=== PATIENT | female | born 1930 | race Hispanic/Latino ===

== ENCOUNTER 2019-06-02 16:18 | Emergency (ER) | payer MEDICARE, OTHER ==
[2019-06-02] MEDS ORDERED: IPRATROPIUM/ALBUTEROL SULFATE 3 ML AMPUL.NEB IH ONE (17:02)
--- NOTE | 2019-06-02 17:02 | Cat Scan Report ---
CT head/brain wo con INDICATION: Stroke symptoms. TECHNIQUE: Head CT without contrast All CT scans at this location are performed using CT dose reduction for ALAR A by means of automated exposure control. COMPARISON: None available. FINDINGS: There is cortical and subcortical hypoattenuation consistent with acute infarct in the right posterio r MCA territory in the right parietal minimal convexity extending into the right posterior insula and right posterior temporal lobe. There is associated hemorrhage or adverse mass effect. There is no ot her acute abnormality. IMPRESSION: 1. Right posterior MCA territory acute infarct without associated hemorrhage or adverse mass effect. Findings discussed with Dr. Willis at 3:57 PM central time on 06/02/2019. Signer Name: Kishor Travis MD Signed: 06/02/2019 4:58 PM Workstation Name: [id number]
--- NOTE | 2019-06-02 17:02 | Emergency Department Report ---
ED Neuro Deficit HPI - General Stated Complaint: FALL/ARM PAIN/DEMENTIA Time Seen by Provider: 06/02/19 16:38 - History of Present Illness Initial Comments: [facility] Date of Service: 06/02/2019 16:35:32 Impression: Right Hemispheric Infarct MCA Distribution Infarct Comments: Patient has an unknown last normal time with most possible recent being yesterday and a well defined R MCA infarct on CT. She is close to 24 hours from possible last normal and the infarct is present therefore I would no consider her a candidate for any intervention and recommend admission for further work up. Metrics: Last Known Well: Unknown [facility] Notification Time: 06/02/2019 16:34:47 Arrival Time: 06/02/2019 16:18:00 Stamp Time: 06/02/2019 16:35:32 Time First Login Attempt: 06/02/2019 16:40:13 Video Start Time: 06/02/2019 16:40:13 Symptoms: falls and slurred speech NIHSS Start Assessment Time: 06/02/2019 16:49:30 Patient is not a candidate for tPA. Patient was not deemed candidate for tPA thrombolytics because of Last Well Known Above 4.5 Hours. Video End Time: 06/02/2019 16:56:55 CT head was reviewed and results were: R MCA territory infarct Advanced imaging was not obtained as the presentation was not suggestive of Large Vessel Occlusive Disease. ER Physician notified of the decision on thrombolytics management on 06/02/2019 16:56:13 Our recommendations are outlined below. Recommendations: Activate Stroke Protocol Admission/Order Set Stroke/Telemetry Floor Neuro Checks Bedside Swallow Eval DVT Prophylaxis IV Fluids, Normal Saline Head of Bed Below 30 Degrees Euglycemia and Avoid Hyperthermia (PRN Acetaminophen) Initiate Aspirin 325 MG Daily Recommended Scan: MRI Head Without Contrast MRA Head and Neck Without Contrast When Available - Stroke Protocol Echocardiogram - Transthoracic Echocardiogram Lipid Panel to Be Obtained, if Not Done in the Last Three Months Therapies: Physical Therapy, Occupational Therapy, Speech Therapy Assessment When Applicable Dysphaghia Screen: Swallow Evaluation, Bedside NPO Until Swallow Evaluation DVT prophylaxis: SCDs, Pneumatic Compression Disposition: Follow up with Teleneurology Follow up Sign Out: Discussed with Primary Attending History of Present Illness: Patient is a 88 year old Female. Patient was brought by EMS for symptoms of falls and slurred speech 88 yo F with history of dementia, hypothyroidism, and dm who is presenting with falls and slurred speech. Patient fell today at her nursing facility today and then she fell a second time so they brought her in. EMT said it was at 10:00. Per EMS she was having falls. The falls occurred in the morning but that we don't know when. She has some left sided weakness. She was reported to have been like this all morning per EMS. Last normal time is not clear. CT head was reviewed. Examination: 1A: Level of Consciousness - Alert; keenly responsive + 0 1B: Ask Month and Age - 1 Question Right + 1 1C: Blink Eyes & Squeeze Hands - Performs Both Tasks + 0 2: Test Horizontal Extraocular Movements - Partial Gaze Palsy: Can Be Overcome + 1 3: Test Visual Dumont - No Visual Loss + 0 4: Test Facial Palsy (Use Grimace if Obtunded) - Partial paralysis (lower face) + 2 5A: Test Left Arm Motor Drift - No Movement + 4 5B: Test Right Arm Motor Drift - No Drift for 10 Seconds + 0 6A: Test Left Leg Motor Drift - No Drift for 5 Seconds + 0 6B: Test Right Leg Motor Drift - No Drift for 5 Seconds + 0 7: Test Limb Ataxia (FNF/Heel-Beard) - No Ataxia + 0 8: Test Sensation - Complete Loss: Cannot Sense Being Touched At All + 2 9: Test Language/Aphasia - Mild-Moderate Aphasia: Some Obvious Changes, Without Significant Limitation + 1 10: Test Dysarthria - Mild-Moderate Dysarthria: Slurring but can be understood + 1 11: Test Extinction/Inattention - No abnormality + 0 NIHSS Score: 12 Patient was informed the Neurology Consult would happen via TeleHealth consult by way of interactive audio and video telecommunications and consented to receiving care in this manner. Due to the immediate potential for life-threatening deterioration due to underlying acute neurologic illness, I spent 35 minutes providing critical care. This time includes time for face to face visit via telemedicine, review of medical records, imaging studies and discussion of findings with providers, the patient and/or family. Dr Chelsea Wolff [facility] Case [id number] - Related Data Home Medications: Home Medications Medication Instructions Recorded Confirmed Last Taken Ascorbate Calcium [Vitamin C] 500 mg PO BID 07/29/13 07/29/13 Unknown Cyanocobalamin/Folic Acid [B-12 1 tab PO DAILY 07/29/13 07/29/13 Unknown 1,000 Mcg Sub Tablet] DOXYCYCLINE Hyclate [Vibramycin 100 mg PO DAILY 07/29/13 07/29/13 Unknown CAP] Fesoterodine Fumarate [Toviaz] 4 mg PO DAILY 07/29/13 07/29/13 Unknown Gabapentin 300 mg PO BID 07/29/13 07/29/13 08/08/13 22:00 Levothyroxine [Synthroid] 50 mcg PO DAILY 07/29/13 07/29/13 08/10/13 07:00 Losartan [Cozaar] 25 mg PO DAILY 07/29/13 07/29/13 08/10/13 07:00 Metformin HCl [metFORMIN ER] 1,000 mg PO BID 07/29/13 07/29/13 Unknown Multivit-Min/FA/Lycopen/Lutein 1 tab PO DAILY 07/29/13 07/29/13 Unknown [Century Adults 50 Plus Tablet] [place]-3 Fatty Acids [Fish Oil] 1 cap PO DAILY 07/29/13 07/29/13 Unknown Valsartan [Diovan] 80 mg PO DAILY 08/04/13 08/04/13 08/09/13 08:00 Allergies/Adverse Reactions: Allergies Allergy/AdvReac Type Severity Reaction Status Date / Time Penicillins Allergy Anaphylaxis Verified 06/02/19 17:00 ED Review of Systems ROS: Stated complaint: FALL/ARM PAIN/DEMENTIA Other details as noted in HPI ED Past Medical Hx - Past Medical History Hx Hypertension: Yes (stop taking BP meds 4 months lorsaatan stress test and echo 4 yrs ago chan) Hx Heart Attack/AMI: No Hx Diabetes: Yes (5-6 YRS " BORDERLINE") Hx Liver Disease: No Hx Renal Disease: No Hx Sickle Cell Disease: No Hx Arthritis: Yes Hx Seizures: No Hx Asthma: No Hx COPD: No - Surgical History Hx Pacemaker: No Hx Internal Defibrillator: No - Social History Smoking Status: Former Smoker - Medications Home Medications: Home Medications Medication Instructions Recorded Confirmed Last Taken Type Ascorbate Calcium [Vitamin C] 500 mg PO BID 07/29/13 07/29/13 Unknown History Cyanocobalamin/Folic Acid [B-12 1 tab PO DAILY 07/29/13 07/29/13 Unknown History 1,000 Mcg Sub Tablet] DOXYCYCLINE Hyclate [Vibramycin 100 mg PO DAILY 07/29/13 07/29/13 Unknown History CAP] Fesoterodine Fumarate [Toviaz] 4 mg PO DAILY 07/29/13 07/29/13 Unknown History Gabapentin 300 mg PO BID 07/29/13 07/29/13 08/08/13 22:00 History Levothyroxine [Synthroid] 50 mcg PO DAILY 07/29/13 07/29/13 08/10/13 07:00 History Losartan [Cozaar] 25 mg PO DAILY 07/29/13 07/29/13 08/10/13 07:00 History Metformin HCl [metFORMIN ER] 1,000 mg PO BID 07/29/13 07/29/13 Unknown History Multivit-Min/FA/Lycopen/Lutein 1 tab PO DAILY 07/29/13 07/29/13 Unknown History [Century Adults 50 Plus Tablet] [place]-3 Fatty Acids [Fish Oil] 1 cap PO DAILY 07/29/13 07/29/13 Unknown History Valsartan [Diovan] 80 mg PO DAILY 08/04/13 08/04/13 08/09/13 08:00 History ED Neuro Physical Exam - General Suspected Stroke: Yes - NIHSS Assessment Interval: Baseline 1a. Level of Consciousness: alert/keenly responsive 1b. LOC Questions: answers 1 question correctly 1c. LOC Commands: performs tasks correctly 2. Best Gaze: partial gaze palsy 3. Visual: no visual loss 4. Facial Palsy: partial paralysis 5b. Motor Arm Right: no drift 5a. Motor Arm Left: no movement 6a. Motor Leg Left: no drift 6b. Motor Leg Right: no drift 7. Limb Ataxia: absent 8. Sensory: severe/total sensory loss 9. Best Language: mild/moderate aphasia 10. Dysarthria: mild/moderate dysarthria 11. Extinction/Inattention: no abnormality Total Score: 12 Stroke Severity: Moderate Stroke Critical care attestation.: If time is entered above; I have spent that time in minutes in the direct care of this critically ill patient, excluding procedure time. ED Disposition Clinical Impression: Stroke Disposition: [id number] OP ADMIT IP TO THIS HOSP Is pt being admited?: Yes Condition: Stable
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
[2019-06-02 17:24] LABS: Basophils # (Auto) 0.1 K/mm3 (0.0-0.1); Basophils % (Auto) 0.4 % (0.0-1.8); Eosinophils % (Auto) 0.1 % (0.0-4.3); Hematocrit 33.6 % (30.3-42.9); Hemoglobin 11.1 gm/dl (10.1-14.3); Lymphocytes # (Auto) 0.4 K/mm3 (1.2-5.4); Mean Corpuscular HGB Conc 33 % (30-34); Mean Corpuscular Volume 99 fl (79-97); Monocytes # (Auto) 1.2 K/mm3 (0.0-0.8); Monocytes % (Auto) 8.6 % (0.0-7.3); Platelet Count 207 K/mm3 (140-440); Red Cell Distribution Width 14.1 % (13.2-15.2)
[2019-06-02] MEDS ORDERED: LORazepam 2 MG/ML VIAL IV ONE (17:32)
[2019-06-02 17:34] LABS: INR 1.24 (0.87-1.13)
[2019-06-02 17:35] LABS: Partial Thromboplastin Time 36.3 Sec. (24.2-36.6)
[2019-06-02 17:38] LABS: Creatine Kinase MB 25.9 ng/mL (0.0-4.0)
[2019-06-02 17:39] LABS: Calcium 8.8 mg/dL (8.4-10.2)
[2019-06-02 17:55] LABS: Chol/HDL Ratio 2.92 %
[2019-06-02] MEDS ORDERED: SODIUM CHLORIDE 0.9% 1000 ML 1,000 ML IV ONE (17:56)
--- NOTE | 2019-06-02 18:41 | XRay Report ---
LEFT SHOULDER 4 VIEWS INDICATION: Shoulder pain, trauma. COMPARISON: No relevant prior imaging study available. FINDINGS: No acute, displaced fracture or dislocation is seen. There is mild subjective osteopenia. Mild degene rative changes are noted at the left shoulder. IMPRESSION: 1. No acute findings. CHEST 1 VIEW INDICATION: sob. COMPARISON: None. FINDINGS: Support devices: None. Heart: Normal. Lungs/Pleura: No acute pulmonary or pleural findings. IMPRESSION: 1. No acute findings. Signer Name: Sreedhar Cowan MD Signed: 06/02/2019 6:36 PM Workstation Name: [id number]
--- NOTE | 2019-06-02 18:46 | XRay Report ---
LEFT FOREARM 2 VIEWS PORTABLE 1745 INDICATION: Fall this morning, left forearm ecchymosis COMPARISON: None FINDINGS: Lateral view is mildly rotated. Atherosclerotic calcifications are seen. Arthritic changes are noted at the elbow and wrist. Chondrocalcinosis is noted at the wrist. No obvious fractures or di slocations are seen. Signer Name: Ti St MD Signed: 06/02/2019 6:41 PM Workstation Name: [id number]
[2019-06-02 18:48] LABS: Calcium 8.9 mg/dL (8.4-10.2)
[2019-06-02] MEDS ORDERED: ASPIRIN 300 MG RECT SUPP PR ONE (18:55)
[2019-06-02] MEDS: INSULIN REGULAR, HUMAN 100 UNITS in SODIUM CHLORIDE 0.9% 99 ML IV SCH (18:57)
[2019-06-02 18:58] LABS: Bilirubin,Urine NEG (Negative); Blood,Urine LG (Negative); Color,Urine Amber (Yellow); Hyaline Casts,Urine 3 /LPF; Mucus,Urine FEW /HPF; RBC,Urine < 1.0 /HPF (0.0-6.0); Urobilinogen,Urine < 2.0 mg/dL (<2.0)
[2019-06-02] MEDS ORDERED: CALCIUM GLUCONATE 1,000 MG in SODIUM CHLORIDE 0.9% 100 ML IV ONE (20:00)
[2019-06-02] MEDS ORDERED: HALOPERIDOL LACTATE 5 MG/1 ML INJ ONE (20:18)
[2019-06-02] MEDS ORDERED: HALOPERIDOL LACTATE 5 MG/1 ML INJ IM ONE (20:24)
[2019-06-02] MEDS ORDERED: ASPIRIN 600 MG RECT SUPP PR ONE (20:39)
[2019-06-02 21:23] LABS: Calcium 8.4 mg/dL (8.4-10.2)
[2019-06-02] MEDS ORDERED: D5W/0.45% NACL 1,000 ML IV ONE (22:09)
[2019-06-02] MEDS ORDERED: ACETAMINOPHEN 325 MG TAB PO PRN ×2 (22:22→22:24)
[2019-06-02] MEDS ORDERED: ACETAMINOPHEN 650 MG RECT SUPP PR PRN (22:22)
[2019-06-02] MEDS ORDERED: ONDANSETRON 4 MG/2 ML INJ IV PRN ×2 (22:22→22:24)
[2019-06-02] MEDS ORDERED: D5W/0.45% NACL 1,000 ML IV SCH ×2 (22:22→23:00)
[2019-06-02] MEDS ORDERED: METOCLOPRAMIDE 10 MG TAB PO PRN (22:24)
[2019-06-02] MEDS ORDERED: MAGNESIUM HYDROXIDE (MOM) ORAL LIQD UDC PO PRN (22:24)
[2019-06-02] MEDS ORDERED: PROMETHAZINE 25 MG RECT SUPP PR PRN (22:24)
--- NOTE | 2019-06-02 22:27 | History and Physical Report ---
History of Present Illness Date of examination: 06/02/19 Date of admission: 06/02/19 18:42 History of present illness: 88-year-old woman with a history of dementia, diabetes was brought to the e mergency room for evaluation. The history is per the daughter at bedside, she was told by the assisted living facility that mom fell twice today. Also she was aphasic and was brought to the emergency room for further evaluation. It was reported by the physician that patient developed chest pain on Saturday. In the emergency room she was agitated, she was given Haldol, Ativan, she is now sedated. Review of system is unobtainable. PAST MEDICAL HISTORY: dementia, diabetes PAST SURGICAL HISTORY: Left hip replacement SOCIAL HISTORY: Denies alcohol, tobacco, drugs FAMILY HISTORY: Hypertension Medications and Allergies Allergies Allergy/AdvReac Type Severity Reaction Status Date / Time Penicillins Allergy Anaphylaxis Verified 06/02/19 17:00 Home Medications Medication Instructions Recorded Confirmed Last Taken Type Levothyroxine [Synthroid] 25 mcg PO DAILY 07/29/13 06/03/19 08/10/13 07:00 History Losartan [Cozaar] 50 mg PO DAILY 07/29/13 06/03/19 08/10/13 07:00 History Metformin HCl [metFORMIN ER] 1,000 mg PO BID 07/29/13 06/03/19 Unknown History Memantine [Namenda] 10 mg PO BID 06/03/19 06/03/19 Unknown History Oxybutynin [Ditropan] 5 mg PO BID 06/03/19 06/03/19 Unknown History Active Meds: Active Medications Acetaminophen (Tylenol) 650 mg PO Q4H PRN PRN Reason: Pain MILD(1-3)/Fever >100.5/LANIER Acetaminophen (Tylenol) 650 mg [place] Q4H PRN PRN Reason: Pain MILD(1-3)/Fever >100.5/LANIER Insulin Human Regular 100 (units/ Sodium Chloride) 100 mls @ 1 mls/hr IV TITR ENIO; Protocol Last Titration: 06/02/19 21:55 Dose: 4 units/hr, 4 mls/hr Documented by: Dextrose/Sodium Chloride (D5/0.45ns) 1,000 mls @ 125 mls/hr IV DIRECT ENIO Sodium Chloride (Nacl 0.9% 1000 Ml) 1,000 mls @ 125 mls/hr IV DIRECT ENIO Ondansetron HCl (Zofran) 4 mg IV Q8H PRN PRN Reason: Nausea And Vomiting Sodium Chloride (Sodium Chloride Flush Syringe 10 Ml) 10 ml IV BID ENIO Sodium Chloride (Sodium Chloride Flush Syringe 10 Ml) 10 ml IV PRN PRN PRN Reason: LINE FLUSH Exam - Physical Exam Narrative exam: Gen. appearance: Patient lying in bed, no apparent distress HEENT: Normocephalic, atraumatic, pupils equally round and reactive to light, extraocular movement intact, and no sclericterus,. No JVD or thyromegaly or nodule,neck supple, no carotid bruit ,mucous membranes dry, no exudate or eryth victoria Heart: S1, S2, regular rate and rhythm Lungs: Clear bilaterally, breathing comfortable Abdomen: Positive bowel sounds, soft, distended, no organomegaly Extremity: no edema, cyanosis, clubbing Skin: No rash, nodules, warm, dry Neuro: sedated - Constitutional Vitals: Temp Pulse Resp BP Pulse Ox 97.7 F 79 22 112/59 99 06/02/19 19:34 06/02/19 21:30 06/02/19 21:30 06/02/19 21:30 06/02/19 21:30 Results - Labs CBC & Chem 7: 06/04/19 11:08 06/04/19 19:56 Labs: Abnormal lab results 06/02/19 06/02/19 06/02/19 Range/Units 16:45 18:16 18:16 WBC (4.5-11.0) K/mm3 RBC (3.65-5.03) M/mm3 MCV (79-97) fl MCH (28-32) pg Lymph % (Auto) (13.4-35.0) % [place] % (Auto) (0.0-7.3) % Lymph # (1.2-5.4) K/mm3 [place] # (0.0-0.8) K/mm3 Seg Neutrophils % (40.0-70.0) % Seg Neutrophils # (1.8-7.7) K/mm3 PT (12.2-14.9) Sec. INR (0.87-1.13) Thrombin Time (15.1-19.6) Sec. Sodium 126 L (137-145) mmol/L Potassium 5.3 H (3.6-5.0) mmol/L Chloride 88.2 L (98-107) mmol/L Carbon Dioxide 10 L (22-30) mmol/L BUN 25 H (7-17) mg/dL Creatinine 1.5 H (0.7-1.2) mg/dL Glucose 446 H (65-100) mg/dL POC Glucose 441 H (70-105) Phosphorus 5.60 H (2.5-4.5) mg/dL Total Creatine Kinase (30-135) units/L CK-MB (CK-2) (0.0-4.0) ng/mL Troponin T (0.00-0.029) ng/mL 06/02/19 06/02/19 06/02/19 Range/Units 19:03 20:38 21:03 WBC (4.5-11.0) K/mm3 RBC (3.65-5.03) M/mm3 MCV (79-97) fl MCH (28-32) pg Lymph % (Auto) (13.4-35.0) % [place] % (Auto) (0.0-7.3) % Lymph # (1.2-5.4) K/mm3 [place] # (0.0-0.8) K/mm3 Seg Neutrophils % (40.0-70.0) % Seg Neutrophils # (1.8-7.7) K/mm3 PT (12.2-14.9) Sec. INR (0.87-1.13) Thrombin Time (15.1-19.6) Sec. Sodium 130 L (137-145) mmol/L Potassium (3.6-5.0) mmol/L Chloride 93.0 L (98-107) mmol/L Carbon Dioxide 10 L (22-30) mmol/L BUN 25 H (7-17) mg/dL Creatinine 1.6 H (0.7-1.2) mg/dL Glucose 338 H (65-100) mg/dL POC Glucose 355 H 271 H (70-105) Phosphorus (2.5-4.5) mg/dL Total Creatine Kinase (30-135) units/L CK-MB (CK-2) (0.0-4.0) ng/mL Troponin T (0.00-0.029) ng/mL 06/02/19 06/02/19 06/02/19 Range/Units Unknown Unknown Unknown WBC 14.3 H (4.5-11.0) K/mm3 RBC 3.40 L (3.65-5.03) M/mm3 MCV 99 H (79-97) fl MCH 33 H (28-32) pg Lymph % (Auto) 3.0 L (13.4-35.0) % [place] % (Auto) 8.6 H (0.0-7.3) % Lymph # 0.4 L (1.2-5.4) K/mm3 [place] # 1.2 H (0.0-0.8) K/mm3 Seg Neutrophils % 87.9 H (40.0-70.0) % Seg Neutrophils # 12.6 H (1.8-7.7) K/mm3 PT 15.8 H (12.2-14.9) Sec. INR 1.24 H (0.87-1.13) Thrombin Time 14.0 L (15.1-19.6) Sec. Sodium 126 L (137-145) mmol/L Potassium 5.7 H (3.6-5.0) mmol/L Chloride 87.0 L (98-107) mmol/L Carbon Dioxide 9 L* (22-30) mmol/L BUN 25 H (7-17) mg/dL Creatinine 1.5 H (0.7-1.2) mg/dL Glucose 436 H (65-100) mg/dL POC Glucose (70-105) Phosphorus (2.5-4.5) mg/dL Total Creatine Kinase 1148 H (30-135) units/L CK-MB (CK-2) 25.9 H (0.0-4.0) ng/mL Troponin T 3.590 H* (0.00-0.029) ng/mL - Imaging and Cardiology Chest x-ray: report reviewed CT Scan - head: report reviewed Assessment and Plan X-ray of the forearm and shoulder reviewed Assessment DKA with severe metabolic acidosis Start DKA protocol with insulin drip Start IV fluids, monitor serial chemistry check hemoglobin A1c, Consult critical care NSTMI Check cardiac enzymes, echo, consult cardiology Start aspirin, hold beta-blockers in the acute phase due to acute stroke. No heparin drip for now per cardiology Acute CVA Obtain MRI of the head, neck, echo Do neuro checks, consult neurology, PT, OT Start aspirin, statin when awake Rhabdomyolysis secondary to fall Continue IV fluid, monitor CK level SIRS Start IV Levaquin obtain blood cultures, urinalysis Abdominal distention Check CT abdomen Hyperkalemia Improving, continue to monitor DVT prophylaxis Addendum Patient with acute cholecystitis, will consult surgery Patient had a brief sinus tach, with heart rate in the 180s EKG was obtained, results were discussed with Prognosis guarded CODE STATUS discussed with daughter at bedside She will consider making patient DNR Addendum Patient DNR
[2019-06-02] MEDS ORDERED: SODIUM CHLORIDE 0.9% 1000 ML 1,000 ML IV SCH (22:30)
[2019-06-02 22:59] LABS: Calcium 8.5 mg/dL (8.4-10.2)
[2019-06-02] MEDS: D5W/0.45% NACL 1,000 ML IV SCH (23:00)
[2019-06-03 01:12] LABS: Calcium 8.3 mg/dL (8.4-10.2)
[2019-06-03] MEDS ORDERED: SODIUM CHLORIDE 0.9% 1000 ML 1,000 ML ONE (02:37)
[2019-06-03 02:47] LABS: Calcium 8.4 mg/dL (8.4-10.2); Creatine Kinase MB 33.7 ng/mL (0.0-4.0)
[2019-06-03] MEDS ORDERED: ACETAMINOPHEN 650 MG RECT SUPP PR ONE (03:10)
--- NOTE | 2019-06-03 03:44 | Cat Scan Report ---
CT abdomen pelvis wo con INDICATION: abd distension. TECHNIQUE: All CT scans at this location are performed using CT dose reduction for ALARA by means of automated e xposure control. COMPARISON: None available. FINDINGS: Bilateral pleural effusions. Interstitial disease, possibly interstitial edema, and both lung bases. No liver lesions. There appears to be gallbladder wall thickening and pericholecystic edema, although I see no gallstones. Spleen, pancreas, kidneys and adrenals are negative. Abdominal aorta is atheros clerotic but normal in size. No adenopathy. Pelvis Appendix cannot be identified. Detail in the lower pelvis is obscured by artifact from the left hip p rosthesis, but urinary bladder is grossly negative. Uterus is absent. No free fluid or inflammation. Dense fecal material in the rectum, possibly fecal impaction. No small bowel abnormalities. Osteopenia, but no acute skeletal lesions. IMPRESSION: 1. Gallbladder wall thickening and/or pericholecystic edema, with no appreciable stones. Chronic chol ecystitis should be considered. 2. Possible fecal impaction. Signer Name: Henrry Johnson MD Signed: 06/03/2019 3:40 AM Workstation Name: [id number]
[2019-06-03] MEDS: D5W/0.45% NACL 1,000 ML IV SCH ×2 (07:36→17:24)
[2019-06-03] MEDS ORDERED: D5W/0.45% NACL 1,000 ML IV ONE ×2 (07:37→17:25)
--- NOTE | 2019-06-03 08:18 | Progress Note ---
Assessment and Plan Assessment and plan: Patient is a 88-year-old woman from [facility] [place] with a history of dementia and DM type 2 who presented to [facility] ED with AMS. 1 day prior to arrival the assisted living facility told her daughter Shefali that patient need help eating and falling which is never the case. She has been admitted for obvious stroke, DKA on insulin drip DKA with severe metabolic acidosis Start DKA protocol with insulin drip Start IV fluids, monitor serial chemistry check hemoglobin A1c, Consult critical care NSTEMI Check cardiac enzymes, echo, consult cardiology Start aspirin, hold beta-blockers in the acute phase due to acute stroke. No heparin drip for now per cardiology D/w Dr. Kapoor Acute CVA Obtain MRI of the head, neck, echo Do neuro checks, consult neurology, PT, OT Start aspirin, statin when awake Rhabdomyolysis secondary to fall Continue IV fluid, monitor CK level SIRS, noninfectious empiric Start IV Levaquin obtain blood cultures, urinalysis Abdominal distention Check CT abdomen=>chronic cholecystitis, d/w Dr. Arellano Hyperkalemia Improving, continue to monitor DVT prophylaxis AFib with RVR Cardiology is following Acute metabolic encephalopathy Urinary retention, UOP poor, intravolume depleted but accelerated hypertension due to stroke, give more volume carefully. DNR poor prognosis tyring to get her off the insulin drip to downgrade her from ICU, labs requested and not done, d/w nurse CCT 35 minutes History Interval history: Patient was seen and examined. Follow-up on current diagnosis of CVA. Overnight uneventful as no events directly reported to me. Imaging, nursing note, chart, labs and old chart reviewed. Discussed with nursing. Edson/W Shefali at bedside, only child. Hospitalist Physical - Physical exam Narrative exam: Gen: thin frial, critically ill appearing NAD, confused HEENT: NCAT, , gaze perference, PERRL, OP Clear, tongue deviates Neck: supple, no adenopathy, no thyromegaly, no JVD CVS/Heart: irregular irregular normal S1S2, pulses present bilaterally Chest/Lungs: CTA B, Symmetrical chest expansion, good air entry bilaterally GI/Abdomen: soft, NT. distended, good bowel sounds, no guarding or rebound /Bladder: no suprapubic tenderness, no CVA or paraspinal tenderness Extermity/Skin: no c/c/e, no obvious rash MSK: FROM x 3, left hemiparesis Neuro: CN 2-12 grossly intact except speech, facial asymmetry, duys Psych: calm - Constitutional Vitals: Temp Pulse Resp BP Pulse Ox 99.1 F 75 19 104/56 100 06/03/19 05:30 06/03/19 05:00 06/03/19 05:00 06/03/19 05:00 06/03/19 05:00 Results - Labs CBC & Chem 7: 06/02/19 Unknown 06/03/19 12:57 Labs: Laboratory Last Values WBC 14.3 K/mm3 (4.5-11.0) H 06/02/19 Unknown RBC 3.40 M/mm3 (3.65-5.03) L 06/02/19 Unknown Hgb 11.1 gm/dl (10.1-14.3) 06/02/19 Unknown Hct 33.6 % (30.3-42.9) 06/02/19 Unknown MCV 99 fl (79-97) H 06/02/19 Unknown MCH 33 pg (28-32) H 06/02/19 Unknown MCHC 33 % (30-34) 06/02/19 Unknown RDW 14.1 % (13.2-15.2) 06/02/19 Unknown Plt Count 207 K/mm3 (140-440) 06/02/19 Unknown Lymph % (Auto) 3.0 % (13.4-35.0) L 06/02/19 Unknown [place] % (Auto) 8.6 % (0.0-7.3) H 06/02/19 Unknown Eos % (Auto) 0.1 % (0.0-4.3) 06/02/19 Unknown Baso % (Auto) 0.4 % (0.0-1.8) 06/02/19 Unknown Lymph # 0.4 K/mm3 (1.2-5.4) L 06/02/19 Unknown [place] # 1.2 K/mm3 (0.0-0.8) H 06/02/19 Unknown Eos # 0.0 K/mm3 (0.0-0.4) 06/02/19 Unknown Baso # 0.1 K/mm3 (0.0-0.1) 06/02/19 Unknown Seg Neutrophils % 87.9 % (40.0-70.0) H 06/02/19 Unknown Seg Neutrophils # 12.6 K/mm3 (1.8-7.7) H 06/02/19 Unknown PT 15.8 Sec. (12.2-14.9) H 06/02/19 Unknown INR 1.24 (0.87-1.13) H 06/02/19 Unknown APTT 36.3 Sec. (24.2-36.6) 06/02/19 Unknown Thrombin Time 14.0 Sec. (15.1-19.6) L 06/02/19 Unknown POC ABG pH 7.358 (7.35-7.45) 06/02/19 18:22 POC ABG pO2 93 (80-105) 06/02/19 18:22 POC ABG HCO3 9.9 (22-26 mml/L) 06/02/19 18:22 POC ABG Total CO2 10 (23-27mmol/L) 06/02/19 18:22 POC ABG O2 Sat 97 06/02/19 18:22 POC ABG Base Excess -16 ((-2) - (+3)mmol/L) 06/02/19 18:22 FiO2 21 % 06/02/19 18:22 Sodium 127 mmol/L (137-145) L 06/03/19 02:08 Potassium 4.8 mmol/L (3.6-5.0) 06/03/19 02:08 Chloride 91.8 mmol/L (98-107) L 06/03/19 02:08 Carbon Dioxide 13 mmol/L (22-30) L 06/03/19 02:08 Anion Gap 27 mmol/L 06/03/19 02:08 BUN 29 mg/dL (7-17) H 06/03/19 02:08 Creatinine 1.7 mg/dL (0.7-1.2) H 06/03/19 02:08 Estimated GFR 28 ml/min 06/03/19 02:08 BUN/Creatinine Ratio 17 % 06/03/19 02:08 Glucose 237 mg/dL (65-100) H 06/03/19 02:08 POC Glucose 183 (70-105) H 06/03/19 07:39 Ketones Quantitative Negative (Negative) 06/02/19 18:16 Calcium 8.4 mg/dL (8.4-10.2) 06/03/19 02:08 Phosphorus 4.40 mg/dL (2.5-4.5) D 06/03/19 02:00 Magnesium 1.80 mg/dL (1.7-2.3) 06/03/19 02:00 Total Creatine Kinase 1688 units/L (30-135) H 06/03/19 02:08 CK-MB (CK-2) 33.7 ng/mL (0.0-4.0) H 06/03/19 02:08 CK-MB (CK-2) Rel Index 1.9 (0-4) 06/03/19 02:08 Troponin T 6.110 ng/mL (0.00-0.029) H* D 06/03/19 02:08 Triglycerides 73 mg/dL (2-149) 06/02/19 Unknown Cholesterol 123 mg/dL (50-199) 06/02/19 Unknown LDL Cholesterol Direct 84 mg/dL (50-130) 06/02/19 Unknown HDL Cholesterol 42 mg/dL (40-59) 06/02/19 Unknown Cholesterol/HDL Ratio 2.92 % 06/02/19 Unknown Urine Color Ana (Yellow) 06/02/19 18:44 Urine Turbidity Cloudy (Clear) 06/02/19 18:44 Urine pH 5.0 (5.0-7.0) 06/02/19 18:44 Ur Specific [place] 1.020 (1.003-1.030) 06/02/19 18:44 Urine Protein 100 mg/dl mg/dL (Negative) 06/02/19 18:44 Urine Glucose (UA) >=500 mg/dL (Negative) 06/02/19 18:44 Urine Ketones Tr mg/dL (Negative) 06/02/19 18:44 Urine Blood Lg (Negative) 06/02/19 18:44 Urine Nitrite Neg (Negative) 06/02/19 18:44 Urine Bilirubin Neg (Negative) 06/02/19 18:44 Urine Urobilinogen < 2.0 mg/dL (<2.0) 06/02/19 18:44 Ur Leukocyte Esterase Neg (Negative) 06/02/19 18:44 Urine WBC (Auto) 2.0 /HPF (0.0-6.0) 06/02/19 18:44 Urine RBC (Auto) < 1.0 /HPF (0.0-6.0) 06/02/19 18:44 U Epithel Cells (Auto) 1.0 /HPF (0-13.0) 06/02/19 18:44 Hyaline Casts 3 /LPF 06/02/19 18:44 Urine Mucus Few /HPF 06/02/19 18:44 Urine Yeast (Budding) 1+ /HPF 06/02/19 18:44 Active Medications - Current Medications Current Medications: Generic Name Dose Route Start Last Admin Trade Name Freq PRN Reason Stop Dose Admin Acetaminophen 650 mg 06/02/19 22:22 Tylenol PO Q4H PRN Pain MILD(1-3)/Fever >100.5/LANIER Acetaminophen 650 mg 06/02/19 22:22 06/03/19 03:15 Tylenol PA 650 mg Q4H PRN Administration Pain MILD(1-3)/Fever >100.5/LANIER Aspirin 300 mg 06/03/19 10:00 Aspirin PA QDAY ENIO Bisacodyl 10 mg 06/02/19 22:24 Dulcolax PA QDAY PRN Constipation Insulin Human Regular 100 100 mls @ 1 mls/hr 06/02/19 18:45 06/03/19 07:33 units/ Sodium Chloride IV 8 units/hr TITR ENIO 8 mls/hr Titration Protocol 1 UNITS/HR Dextrose/Sodium Chloride 1,000 mls @ 125 mls/hr 06/02/19 23:00 06/03/19 07:36 D5/0.45ns IV 125 mls/hr DIRECT ENIO Administration Sodium Chloride 1,000 mls @ 125 mls/hr 06/02/19 22:30 Nacl 0.9% 1000 Ml IV DIRECT ENIO Magnesium Hydroxide 30 ml 06/02/19 22:24 Milk Of Magnesia PO Q4H PRN Constipation Ondansetron HCl 4 mg 06/02/19 22:22 Zofran IV Q8H PRN Nausea And Vomiting Sodium Chloride 10 ml 06/03/19 10:00 Sodium Chloride Flush Syringe 10 Ml IV BID ENIO Sodium Chloride 10 ml 06/02/19 22:22 Sodium Chloride Flush Syringe 10 Ml IV PRN PRN LINE FLUSH
[2019-06-03] MEDS: INSULIN REGULAR, HUMAN 100 UNITS in SODIUM CHLORIDE 0.9% 99 ML IV SCH (12:20)
[2019-06-03 14:18] LABS: Calcium 8.3 mg/dL (8.4-10.2)
[2019-06-03 14:31] LABS: Albumin 3.4 g/dL (3.9-5)
[2019-06-03 14:36] LABS: Bilirubin,Direct 0.3 mg/dL (0-0.2)
[2019-06-03] MEDS: ASPIRIN 300 MG RECT SUPP PR SCH (14:48)
[2019-06-03] MEDS ORDERED: SODIUM CHLORIDE 0.9% 500 ML 500 ML IV ONE (15:00)
--- NOTE | 2019-06-03 15:30 | Consultation ---
History of Present Illness Consult date: 06/03/19 Chief complaint: AMS - History of present illness History of present illness: 88 yo F who currently resides in an assisted living facility, presented to ER with altered mental status since 10 am today. Patient cannot provide history and all hx obtained from chart and family at bedside. The patient is at baseline able to perform her activities of daily living and is independent. Today she was noted to be altered, having slurred speech and falling. Per family patient has never complained of abdominal pain, n/v, or intolerance to certain foods. The patient also denies abdominal pain, n/v as is asking for something to drink. No f/c, sob. W/U in ER included at CT scan A/P which showed an abnormal gallbladder. Surgery is consulted for evaluation. Past History Past Medical History: diabetes, hypertension, hyperlipidemia, other (hypothyroidism) Past Surgical History: hysterectomy Social history: no significant social history Family history: no significant family history Medications and Allergies Allergies Allergy/AdvReac Type Severity Reaction Status Date / Time Penicillins Allergy Anaphylaxis Verified 06/02/19 17:00 Home Medications Medication Instructions Recorded Confirmed Last Taken Type Levothyroxine [Synthroid] 25 mcg PO DAILY 07/29/13 06/03/19 08/10/13 07:00 History Losartan [Cozaar] 50 mg PO DAILY 07/29/13 06/03/19 08/10/13 07:00 History Metformin HCl [metFORMIN ER] 1,000 mg PO BID 07/29/13 06/03/19 Unknown History Memantine [Namenda] 10 mg PO BID 06/03/19 06/03/19 Unknown History Oxybutynin [Ditropan] 5 mg PO BID 06/03/19 06/03/19 Unknown History Active Meds: Active Medications Acetaminophen (Tylenol) 650 mg PO Q4H PRN PRN Reason: Pain MILD(1-3)/Fever >100.5/LANIER Acetaminophen (Tylenol) 650 mg LA Q4H PRN PRN Reason: Pain MILD(1-3)/Fever >100.5/LANIER Last Admin: 06/03/19 03:15 Dose: 650 mg Documented by: Aspirin (Aspirin) 300 mg LA QDAY [facility] Last Admin: 06/03/19 14:48 Dose: 300 mg Documented by: Bisacodyl (Dulcolax) 10 mg LA QDAY PRN PRN Reason: Constipation Insulin Human Regular 100 (units/ Sodium Chloride) 100 mls @ 1 mls/hr IV TITR ENIO; Protocol Last Titration: 06/03/19 14:47 Dose: 0 units/hr, 0 mls/hr Documented by: Dextrose/Sodium Chloride (D5/0.45ns) 1,000 mls @ 125 mls/hr IV DIRECT ENIO Last Admin: 06/03/19 07:36 Dose: 125 mls/hr Documented by: Sodium Chloride (Nacl 0.9% 1000 Ml) 1,000 mls @ 125 mls/hr IV DIRECT ENIO Sodium Chloride (Nacl 0.9% 500 Ml) 500 mls @ 999 mls/hr IV ONCE ONE Stop: 06/03/19 15:30 Last Admin: 06/03/19 14:48 Dose: 999 mls/hr Documented by: Magnesium Hydroxide (Milk Of Magnesia) 30 ml PO Q4H PRN PRN Reason: Constipation Ondansetron HCl (Zofran) 4 mg IV Q8H PRN PRN Reason: Nausea And Vomiting Pneumococcal Polyvalent Vaccine (Pneumovax 23) 0.5 ml IM .ONCE ONE Stop: 06/04/19 12:01 Sodium Chloride (Sodium Chloride Flush Syringe 10 Ml) 10 ml IV BID ENIO Last Admin: 06/03/19 10:42 Dose: 10 ml Documented by: Sodium Chloride (Sodium Chloride Flush Syringe 10 Ml) 10 ml IV PRN PRN PRN Reason: LINE FLUSH Review of Systems ROS unobtainable: due to mental status Exam Vital Signs Pulse Resp BP Pulse Ox 78 22 118/48 97 06/02/19 16:49 06/02/19 16:49 06/02/19 16:49 06/02/19 16:49 Narrative exam: Gen: Awake and alert. Follows commands and answered questions. Confused. ENT: no scleral icterus. CV: S1, S2+ resp: even and unlabored Abd: soft, NT, ND. no r/r/g Ext: no c/c/e Neuro: +facial droop, L side is flacid. Results - Labs 06/02/19 Unknown 06/03/19 12:57 Abnormal lab results 06/02/19 06/02/19 06/02/19 Range/Units 16:45 18:16 18:16 WBC (4.5-11.0) K/mm3 RBC (3.65-5.03) M/mm3 MCV (79-97) fl MCH (28-32) pg Lymph % (Auto) (13.4-35.0) % Young % (Auto) (0.0-7.3) % Lymph # (1.2-5.4) K/mm3 Young # (0.0-0.8) K/mm3 Seg Neutrophils % (40.0-70.0) % Seg Neutrophils # (1.8-7.7) K/mm3 PT (12.2-14.9) Sec. INR (0.87-1.13) Thrombin Time (15.1-19.6) Sec. Sodium 126 L (137-145) mmol/L Potassium 5.3 H (3.6-5.0) mmol/L Chloride 88.2 L (98-107) mmol/L Carbon Dioxide 10 L (22-30) mmol/L BUN 25 H (7-17) mg/dL Creatinine 1.5 H (0.7-1.2) mg/dL Glucose 446 H (65-100) mg/dL POC Glucose 441 H (70-105) Calcium (8.4-10.2) mg/dL Phosphorus 5.60 H (2.5-4.5) mg/dL Direct Bilirubin (0-0.2) mg/dL AST (5-40) units/L ALT (7-56) units/L Total Creatine Kinase (30-135) units/L CK-MB (CK-2) (0.0-4.0) ng/mL Troponin T (0.00-0.029) ng/mL Albumin (3.9-5) g/dL 06/02/19 06/02/19 06/02/19 Range/Units 19:03 20:38 21:03 WBC (4.5-11.0) K/mm3 RBC (3.65-5.03) M/mm3 MCV (79-97) fl MCH (28-32) pg Lymph % (Auto) (13.4-35.0) % Young % (Auto) (0.0-7.3) % Lymph # (1.2-5.4) K/mm3 Young # (0.0-0.8) K/mm3 Seg Neutrophils % (40.0-70.0) % Seg Neutrophils # (1.8-7.7) K/mm3 PT (12.2-14.9) Sec. INR (0.87-1.13) Thrombin Time (15.1-19.6) Sec. Sodium 130 L (137-145) mmol/L Potassium (3.6-5.0) mmol/L Chloride 93.0 L (98-107) mmol/L Carbon Dioxide 10 L (22-30) mmol/L BUN 25 H (7-17) mg/dL Creatinine 1.6 H (0.7-1.2) mg/dL Glucose 338 H (65-100) mg/dL POC Glucose 355 H 271 H (70-105) Calcium (8.4-10.2) mg/dL Phosphorus (2.5-4.5) mg/dL Direct Bilirubin (0-0.2) mg/dL AST (5-40) units/L ALT (7-56) units/L Total Creatine Kinase (30-135) units/L CK-MB (CK-2) (0.0-4.0) ng/mL Troponin T (0.00-0.029) ng/mL Albumin (3.9-5) g/dL 06/02/19 06/02/19 06/02/19 Range/Units 22:08 22:21 23:11 WBC (4.5-11.0) K/mm3 RBC (3.65-5.03) M/mm3 MCV (79-97) fl MCH (28-32) pg Lymph % (Auto) (13.4-35.0) % Young % (Auto) (0.0-7.3) % Lymph # (1.2-5.4) K/mm3 Young # (0.0-0.8) K/mm3 Seg Neutrophils % (40.0-70.0) % Seg Neutrophils # (1.8-7.7) K/mm3 PT (12.2-14.9) Sec. INR (0.87-1.13) Thrombin Time (15.1-19.6) Sec. Sodium 132 L (137-145) mmol/L Potassium (3.6-5.0) mmol/L Chloride 95.1 L (98-107) mmol/L Carbon Dioxide 12 L (22-30) mmol/L BUN 27 H (7-17) mg/dL Creatinine 1.7 H (0.7-1.2) mg/dL Glucose 261 H (65-100) mg/dL POC Glucose 242 H 193 H (70-105) Calcium (8.4-10.2) mg/dL Phosphorus (2.5-4.5) mg/dL Direct Bilirubin (0-0.2) mg/dL AST (5-40) units/L ALT (7-56) units/L Total Creatine Kinase (30-135) units/L CK-MB (CK-2) (0.0-4.0) ng/mL Troponin T (0.00-0.029) ng/mL Albumin (3.9-5) g/dL 06/02/19 06/02/19 06/02/19 Range/Units Unknown Unknown Unknown WBC 14.3 H (4.5-11.0) K/mm3 RBC 3.40 L (3.65-5.03) M/mm3 MCV 99 H (79-97) fl MCH 33 H (28-32) pg Lymph % (Auto) 3.0 L (13.4-35.0) % Young % (Auto) 8.6 H (0.0-7.3) % Lymph # 0.4 L (1.2-5.4) K/mm3 Young # 1.2 H (0.0-0.8) K/mm3 Seg Neutrophils % 87.9 H (40.0-70.0) % Seg Neutrophils # 12.6 H (1.8-7.7) K/mm3 PT 15.8 H (12.2-14.9) Sec. INR 1.24 H (0.87-1.13) Thrombin Time 14.0 L (15.1-19.6) Sec. Sodium 126 L (137-145) mmol/L Potassium 5.7 H (3.6-5.0) mmol/L Chloride 87.0 L (98-107) mmol/L Carbon Dioxide 9 L* (22-30) mmol/L BUN 25 H (7-17) mg/dL Creatinine 1.5 H (0.7-1.2) mg/dL Glucose 436 H (65-100) mg/dL POC Glucose (70-105) Calcium (8.4-10.2) mg/dL Phosphorus (2.5-4.5) mg/dL Direct Bilirubin (0-0.2) mg/dL AST (5-40) units/L ALT (7-56) units/L Total Creatine Kinase 1148 H (30-135) units/L CK-MB (CK-2) 25.9 H (0.0-4.0) ng/mL Troponin T 3.590 H* (0.00-0.029) ng/mL Albumin (3.9-5) g/dL 06/03/19 06/03/19 06/03/19 Range/Units 00:42 01:22 02:08 WBC (4.5-11.0) K/mm3 RBC (3.65-5.03) M/mm3 MCV (79-97) fl MCH (28-32) pg Lymph % (Auto) (13.4-35.0) % Young % (Auto) (0.0-7.3) % Lymph # (1.2-5.4) K/mm3 Young # (0.0-0.8) K/mm3 Seg Neutrophils % (40.0-70.0) % Seg Neutrophils # (1.8-7.7) K/mm3 PT (12.2-14.9) Sec. INR (0.87-1.13) Thrombin Time (15.1-19.6) Sec. Sodium 130 L 127 L (137-145) mmol/L Potassium (3.6-5.0) mmol/L Chloride 95.1 L 91.8 L (98-107) mmol/L Carbon Dioxide 13 L 13 L (22-30) mmol/L BUN 29 H 29 H (7-17) mg/dL Creatinine 1.7 H 1.7 H (0.7-1.2) mg/dL Glucose 228 H 237 H (65-100) mg/dL POC Glucose 235 H (70-105) Calcium 8.3 L (8.4-10.2) mg/dL Phosphorus (2.5-4.5) mg/dL Direct Bilirubin (0-0.2) mg/dL AST (5-40) units/L ALT (7-56) units/L Total Creatine Kinase 1688 H (30-135) units/L CK-MB (CK-2) 33.7 H (0.0-4.0) ng/mL Troponin T 6.110 H* D (0.00-0.029) ng/mL Albumin (3.9-5) g/dL 06/03/19 06/03/19 06/03/19 Range/Units 02:37 03:54 05:01 WBC (4.5-11.0) K/mm3 RBC (3.65-5.03) M/mm3 MCV (79-97) fl MCH (28-32) pg Lymph % (Auto) (13.4-35.0) % Young % (Auto) (0.0-7.3) % Lymph # (1.2-5.4) K/mm3 Young # (0.0-0.8) K/mm3 Seg Neutrophils % (40.0-70.0) % Seg Neutrophils # (1.8-7.7) K/mm3 PT (12.2-14.9) Sec. INR (0.87-1.13) Thrombin Time (15.1-19.6) Sec. Sodium (137-145) mmol/L Potassium (3.6-5.0) mmol/L Chloride (98-107) mmol/L Carbon Dioxide (22-30) mmol/L BUN (7-17) mg/dL Creatinine (0.7-1.2) mg/dL Glucose (65-100) mg/dL POC Glucose 241 H 207 H 184 H (70-105) Calcium (8.4-10.2) mg/dL Phosphorus (2.5-4.5) mg/dL Direct Bilirubin (0-0.2) mg/dL AST (5-40) units/L ALT (7-56) units/L Total Creatine Kinase (30-135) units/L CK-MB (CK-2) (0.0-4.0) ng/mL Troponin T (0.00-0.029) ng/mL Albumin (3.9-5) g/dL 06/03/19 06/03/19 06/03/19 Range/Units 06:32 07:39 08:53 WBC (4.5-11.0) K/mm3 RBC (3.65-5.03) M/mm3 MCV (79-97) fl MCH (28-32) pg Lymph % (Auto) (13.4-35.0) % Young % (Auto) (0.0-7.3) % Lymph # (1.2-5.4) K/mm3 Young # (0.0-0.8) K/mm3 Seg Neutrophils % (40.0-70.0) % Seg Neutrophils # (1.8-7.7) K/mm3 PT (12.2-14.9) Sec. INR (0.87-1.13) Thrombin Time (15.1-19.6) Sec. Sodium (137-145) mmol/L Potassium (3.6-5.0) mmol/L Chloride (98-107) mmol/L Carbon Dioxide (22-30) mmol/L BUN (7-17) mg/dL Creatinine (0.7-1.2) mg/dL Glucose (65-100) mg/dL POC Glucose 194 H 183 H 121 H (70-105) Calcium (8.4-10.2) mg/dL Phosphorus (2.5-4.5) mg/dL Direct Bilirubin (0-0.2) mg/dL AST (5-40) units/L ALT (7-56) units/L Total Creatine Kinase (30-135) units/L CK-MB (CK-2) (0.0-4.0) ng/mL Troponin T (0.00-0.029) ng/mL Albumin (3.9-5) g/dL 06/03/19 06/03/19 06/03/19 Range/Units 10:02 10:50 12:24 WBC (4.5-11.0) K/mm3 RBC (3.65-5.03) M/mm3 MCV (79-97) fl MCH (28-32) pg Lymph % (Auto) (13.4-35.0) % Young % (Auto) (0.0-7.3) % Lymph # (1.2-5.4) K/mm3 Young # (0.0-0.8) K/mm3 Seg Neutrophils % (40.0-70.0) % Seg Neutrophils # (1.8-7.7) K/mm3 PT (12.2-14.9) Sec. INR (0.87-1.13) Thrombin Time (15.1-19.6) Sec. Sodium (137-145) mmol/L Potassium (3.6-5.0) mmol/L Chloride (98-107) mmol/L Carbon Dioxide (22-30) mmol/L BUN (7-17) mg/dL Creatinine (0.7-1.2) mg/dL Glucose (65-100) mg/dL POC Glucose 114 H 121 H 121 H (70-105) Calcium (8.4-10.2) mg/dL Phosphorus (2.5-4.5) mg/dL Direct Bilirubin (0-0.2) mg/dL AST (5-40) units/L ALT (7-56) units/L Total Creatine Kinase (30-135) units/L CK-MB (CK-2) (0.0-4.0) ng/mL Troponin T (0.00-0.029) ng/mL Albumin (3.9-5) g/dL 06/03/19 06/03/19 Range/Units 12:57 12:57 WBC (4.5-11.0) K/mm3 RBC (3.65-5.03) M/mm3 MCV (79-97) fl MCH (28-32) pg Lymph % (Auto) (13.4-35.0) % Young % (Auto) (0.0-7.3) % Lymph # (1.2-5.4) K/mm3 Young # (0.0-0.8) K/mm3 Seg Neutrophils % (40.0-70.0) % Seg Neutrophils # (1.8-7.7) K/mm3 PT (12.2-14.9) Sec. INR (0.87-1.13) Thrombin Time (15.1-19.6) Sec. Sodium 131 L (137-145) mmol/L Potassium (3.6-5.0) mmol/L Chloride 97.3 L (98-107) mmol/L Carbon Dioxide 13 L (22-30) mmol/L BUN 37 H (7-17) mg/dL Creatinine 2.4 H (0.7-1.2) mg/dL Glucose (65-100) mg/dL POC Glucose (70-105) Calcium 8.3 L (8.4-10.2) mg/dL Phosphorus (2.5-4.5) mg/dL Direct Bilirubin 0.3 H (0-0.2) mg/dL AST 78664 H (5-40) units/L ALT 4463 H (7-56) units/L Total Creatine Kinase 1884 H (30-135) units/L CK-MB (CK-2) 26.0 H (0.0-4.0) ng/mL Troponin T 7.340 H* D (0.00-0.029) ng/mL Albumin 3.4 L (3.9-5) g/dL Diabetes panel 06/02/19 06/02/19 06/02/19 Range/Units 18:16 20:38 22:21 Sodium 126 L 130 L 132 L (137-145) mmol/L Potassium 5.3 H 5.0 4.8 (3.6-5.0) mmol/L Chloride 88.2 L 93.0 L 95.1 L (98-107) mmol/L Carbon Dioxide 10 L 10 L 12 L (22-30) mmol/L BUN 25 H 25 H 27 H (7-17) mg/dL Creatinine 1.5 H 1.6 H 1.7 H (0.7-1.2) mg/dL Glucose 446 H 338 H 261 H (65-100) mg/dL Calcium 8.9 8.4 8.5 (8.4-10.2) mg/dL AST (5-40) units/L ALT (7-56) units/L Alkaline Phosphatase (35-129) units/L Total Protein (6.3-8.2) g/dL Albumin (3.9-5) g/dL Triglycerides (2-149) mg/dL HDL Cholesterol (40-59) mg/dL 06/02/19 06/03/19 06/03/19 Range/Units Unknown 00:42 02:08 Sodium 126 L 130 L 127 L (137-145) mmol/L Potassium 5.7 H 4.5 4.8 (3.6-5.0) mmol/L Chloride 87.0 L 95.1 L 91.8 L (98-107) mmol/L Carbon Dioxide 9 L* 13 L 13 L (22-30) mmol/L BUN 25 H 29 H 29 H (7-17) mg/dL Creatinine 1.5 H 1.7 H 1.7 H (0.7-1.2) mg/dL Glucose 436 H 228 H 237 H (65-100) mg/dL Calcium 8.8 8.3 L 8.4 (8.4-10.2) mg/dL AST (5-40) units/L ALT (7-56) units/L Alkaline Phosphatase (35-129) units/L Total Protein (6.3-8.2) g/dL Albumin (3.9-5) g/dL Triglycerides 73 (2-149) mg/dL HDL Cholesterol 42 (40-59) mg/dL 06/03/19 Range/Units 12:57 Sodium 131 L (137-145) mmol/L Potassium 4.2 (3.6-5.0) mmol/L Chloride 97.3 L (98-107) mmol/L Carbon Dioxide 13 L (22-30) mmol/L BUN 37 H (7-17) mg/dL Creatinine 2.4 H (0.7-1.2) mg/dL Glucose 100 (65-100) mg/dL Calcium 8.3 L (8.4-10.2) mg/dL AST 73373 H (5-40) units/L ALT 4463 H (7-56) units/L Alkaline Phosphatase 73 (35-129) units/L Total Protein 6.5 (6.3-8.2) g/dL Albumin 3.4 L (3.9-5) g/dL Triglycerides (2-149) mg/dL HDL Cholesterol (40-59) mg/dL Calcium panel 06/02/19 06/02/19 06/02/19 Range/Units 18:16 18:16 20:38 Calcium 8.9 8.4 (8.4-10.2) mg/dL Phosphorus 5.60 H (2.5-4.5) mg/dL Albumin (3.9-5) g/dL 06/02/19 06/02/19 06/03/19 Range/Units 22:21 Unknown 00:42 Calcium 8.5 8.8 8.3 L (8.4-10.2) mg/dL Phosphorus (2.5-4.5) mg/dL Albumin (3.9-5) g/dL 06/03/19 06/03/19 06/03/19 Range/Units 02:00 02:08 12:57 Calcium 8.4 8.3 L (8.4-10.2) mg/dL Phosphorus 4.40 D 4.10 (2.5-4.5) mg/dL Albumin 3.4 L (3.9-5) g/dL Pituitary panel 06/02/19 06/02/19 06/02/19 Range/Units 18:16 20:38 22:21 Sodium 126 L 130 L 132 L (137-145) mmol/L Potassium 5.3 H 5.0 4.8 (3.6-5.0) mmol/L Chloride 88.2 L 93.0 L 95.1 L (98-107) mmol/L Carbon Dioxide 10 L 10 L 12 L (22-30) mmol/L BUN 25 H 25 H 27 H (7-17) mg/dL Creatinine 1.5 H 1.6 H 1.7 H (0.7-1.2) mg/dL Glucose 446 H 338 H 261 H (65-100) mg/dL Calcium 8.9 8.4 8.5 (8.4-10.2) mg/dL 06/02/19 06/03/19 06/03/19 Range/Units Unknown 00:42 02:08 Sodium 126 L 130 L 127 L (137-145) mmol/L Potassium 5.7 H 4.5 4.8 (3.6-5.0) mmol/L Chloride 87.0 L 95.1 L 91.8 L (98-107) mmol/L Carbon Dioxide 9 L* 13 L 13 L (22-30) mmol/L BUN 25 H 29 H 29 H (7-17) mg/dL Creatinine 1.5 H 1.7 H 1.7 H (0.7-1.2) mg/dL Glucose 436 H 228 H 237 H (65-100) mg/dL Calcium 8.8 8.3 L 8.4 (8.4-10.2) mg/dL 06/03/19 Range/Units 12:57 Sodium 131 L (137-145) mmol/L Potassium 4.2 (3.6-5.0) mmol/L Chloride 97.3 L (98-107) mmol/L Carbon Dioxide 13 L (22-30) mmol/L BUN 37 H (7-17) mg/dL Creatinine 2.4 H (0.7-1.2) mg/dL Glucose 100 (65-100) mg/dL Calcium 8.3 L (8.4-10.2) mg/dL Adrenal panel 06/02/19 06/02/19 06/02/19 Range/Units 18:16 20:38 22:21 Sodium 126 L 130 L 132 L (137-145) mmol/L Potassium 5.3 H 5.0 4.8 (3.6-5.0) mmol/L Chloride 88.2 L 93.0 L 95.1 L (98-107) mmol/L Carbon Dioxide 10 L 10 L 12 L (22-30) mmol/L BUN 25 H 25 H 27 H (7-17) mg/dL Creatinine 1.5 H 1.6 H 1.7 H (0.7-1.2) mg/dL Glucose 446 H 338 H 261 H (65-100) mg/dL Calcium 8.9 8.4 8.5 (8.4-10.2) mg/dL Total Bilirubin (0.1-1.2) mg/dL AST (5-40) units/L ALT (7-56) units/L Alkaline Phosphatase (35-129) units/L Total Protein (6.3-8.2) g/dL Albumin (3.9-5) g/dL 06/02/19 06/03/19 06/03/19 Range/Units Unknown 00:42 02:08 Sodium 126 L 130 L 127 L (137-145) mmol/L Potassium 5.7 H 4.5 4.8 (3.6-5.0) mmol/L Chloride 87.0 L 95.1 L 91.8 L (98-107) mmol/L Carbon Dioxide 9 L* 13 L 13 L (22-30) mmol/L BUN 25 H 29 H 29 H (7-17) mg/dL Creatinine 1.5 H 1.7 H 1.7 H (0.7-1.2) mg/dL Glucose 436 H 228 H 237 H (65-100) mg/dL Calcium 8.8 8.3 L 8.4 (8.4-10.2) mg/dL Total Bilirubin (0.1-1.2) mg/dL AST (5-40) units/L ALT (7-56) units/L Alkaline Phosphatase (35-129) units/L Total Protein (6.3-8.2) g/dL Albumin (3.9-5) g/dL 06/03/19 Range/Units 12:57 Sodium 131 L (137-145) mmol/L Potassium 4.2 (3.6-5.0) mmol/L Chloride 97.3 L (98-107) mmol/L Carbon Dioxide 13 L (22-30) mmol/L BUN 37 H (7-17) mg/dL Creatinine 2.4 H (0.7-1.2) mg/dL Glucose 100 (65-100) mg/dL Calcium 8.3 L (8.4-10.2) mg/dL Total Bilirubin 0.70 (0.1-1.2) mg/dL AST 29326 H (5-40) units/L ALT 4463 H (7-56) units/L Alkaline Phosphatase 73 (35-129) units/L Total Protein 6.5 (6.3-8.2) g/dL Albumin 3.4 L (3.9-5) g/dL - Imaging CT scan - abdomen: report reviewed, image reviewed CT scan - pelvis: report reviewed, image reviewed US - abdomen: report reviewed Assessment and Plan 88 yo F with 1. abnormal gallbladder on CT 2. acute liver injury 3. AMS 4. possible CVA Ct A/P and Abd u/s images reviewed personally. No stones or sludge seen on ultrasound, wall is not thickened. ?Slight pericholecystic fluid - could be nonspecific finding Plan: 1. NPO 2. IVF 3. cardiology consulted 4. u/s abdomen - radiology read is pending 5. IV abx - empiric 6. LFTs very elevated indicating acute hepatic injury patten and unlikely related to gallbladder pathology when this high - trend daily. 7. CBC, BMP daily 8. neurology consult 9. Bl cx and urine cx Unlikely that patient has acute cholecystitis based on current findings. In addition, she has multiple concurrent active medical issues including possible stroke, elevated troponin, electrolyte abnormalities making her a poor candidate for surgery. Will follow. Imaging results discussed with daughter and family at bedside as well as surgical recommendations. All questions answered. Thank you, please call with questions
--- NOTE | 2019-06-03 15:58 | Ultrasound Report ---
ULTRASOUND ABDOMEN, LIMITED (RIGHT UPPER QUADRANT) INDICATION: abnormal gallbladder on CT, abdominal distention COMPARISON: CT abdomen and pelvis this morning LIMITATIONS: Patient was of limited mobility for the study. FINDINGS: Pancreas: Visualized portion shows no significant abnormality. Liver: Mild fatty infiltration of the liver seen without obvious focal mass. Liver is not significant ly enlarged and has a length of 15.5 cm. Gallbladder: Gallbladder wall is mildly thickened and there appears to be a small amount of fluid wit hin the wall. Minimal internal echogenicity is seen which may just be sludge though tiny stones canno t be excluded. No definite calculi are seen however. Bile ducts: Normal. Common Bile Duct measures 4 mm. Right Kidney: Visualized portions show no abnormality. Free fluid: None. Additional Findings: Minimal ectasia of the mid abdominal aorta is seen but only to a diameter 18 mm compared to 14 mm proximally and 14 mm distally. IMPRESSION: As on CT, the gallbladder shows wall edema but no definite calculi are seen as discussed. Acute cholecystitis cannot be clearly excluded. Hepatobiliary scintigraphy may be useful if there is clinical concern. Signer Name: Ti St MD Signed: 06/03/2019 3:54 PM Workstation Name: [id number]
--- NOTE | 2019-06-03 16:31 | Consultation ---
History of Present Illness Consult date: 06/03/19 Reason for Consult: Slurred speech and falls Chief complaint: Slurred speech, falls, LUE weakness History of present illness: Patient is an 88 y/o woman w/ a h/o HTN, hypothyroidism, DM, and dementia. Patient lives in an assisted care facility, and yesterday morning was noted to have fallen twice, and was also noted to have slurred speech and LUE weakness. Patient was then brought to [facility] for further evaluation. CT head was done, which showed that patient had an acute stroke in the right MCA territory. Patient was also found to be in interrmited A-fib, and also found to have a NSTEMI and DKA. At baseline, patient reportedly is independent in ADLs, but only has some cognitive deficits. Past History Past Medical History: diabetes, hypertension, hyperlipidemia, other (hy pothyroidism) Past Surgical History: hysterectomy Social history: no significant social history Family history: no significant family history Medications and Allergies Allergies Allergy/AdvReac Type Severity Reaction Status Date / Time Penicillins Allergy Anaphylaxis Verified 06/02/19 17:00 Home Medications Medication Instructions Recorded Confirmed Last Taken Type Levothyroxine [Synthroid] 25 mcg PO DAILY 07/29/13 06/03/19 08/10/13 07:00 History Losartan [Cozaar] 50 mg PO DAILY 07/29/13 06/03/19 08/10/13 07:00 History Metformin HCl [metFORMIN ER] 1,000 mg PO BID 07/29/13 06/03/19 Unknown History Memantine [Namenda] 10 mg PO BID 06/03/19 06/03/19 Unknown History Oxybutynin [Ditropan] 5 mg PO BID 06/03/19 06/03/19 Unknown History Active Meds: Active Medications Acetaminophen (Tylenol) 650 mg PO Q4H PRN PRN Reason: Pain MILD(1-3)/Fever >100.5/LANIER Acetaminophen (Tylenol) 650 mg AL Q4H PRN PRN Reason: Pain MILD(1-3)/Fever >100.5/LANIER Last Admin: 06/03/19 03:15 Dose: 650 mg Documented by: Aspirin (Aspirin) 300 mg AL QDAY ENIO Last Admin: 06/03/19 14:48 Dose: 300 mg Documented by: Bisacodyl (Dulcolax) 10 mg AL QDAY PRN PRN Reason: Constipation Insulin Human Regular 100 (units/ Sodium Chloride) 100 mls @ 1 mls/hr IV TITR ENIO; Protocol Last Titration: 06/03/19 16:07 Dose: 3 units/hr, 3 mls/hr Documented by: Dextrose/Sodium Chloride (D5/0.45ns) 1,000 mls @ 125 mls/hr IV DIRECT ENIO Last Admin: 06/03/19 07:36 Dose: 125 mls/hr Documented by: Sodium Chloride (Nacl 0.9% 1000 Ml) 1,000 mls @ 125 mls/hr IV DIRECT ENIO Magnesium Hydroxide (Milk Of Magnesia) 30 ml PO Q4H PRN PRN Reason: Constipation Ondansetron HCl (Zofran) 4 mg IV Q8H PRN PRN Reason: Nausea And Vomiting Pneumococcal Polyvalent Vaccine (Pneumovax 23) 0.5 ml IM .ONCE ONE Stop: 06/04/19 12:01 Sodium Chloride (Sodium Chloride Flush Syringe 10 Ml) 10 ml IV BID ENIO Last Admin: 06/03/19 10:42 Dose: 10 ml Documented by: Sodium Chloride (Sodium Chloride Flush Syringe 10 Ml) 10 ml IV PRN PRN PRN Reason: LINE FLUSH Physical Examination - Vital Signs Vital Signs: Vital Signs Pulse Resp BP Pulse Ox 78 22 118/48 97 06/02/19 16:49 06/02/19 16:49 06/02/19 16:49 06/02/19 16:49 Results - Laboratory Findings CBC and BMP: 06/02/19 Unknown 06/03/19 12:57 Abnormal Lab Findings: Abnormal Labs 06/02/19 06/02/19 06/02/19 16:45 18:16 18:16 WBC RBC MCV MCH Lymph % (Auto) [place] % (Auto) Lymph # [place] # Seg Neutrophils % Seg Neutrophils # PT INR Thrombin Time Sodium 126 L Potassium 5.3 H Chloride 88.2 L Carbon Dioxide 10 L BUN 25 H Creatinine 1.5 H Glucose 446 H POC Glucose 441 H Calcium Phosphorus 5.60 H Direct Bilirubin AST ALT Total Creatine Kinase CK-MB (CK-2) Troponin T Albumin 06/02/19 06/02/19 06/02/19 19:03 20:38 21:03 WBC RBC MCV MCH Lymph % (Auto) [place] % (Auto) Lymph # [place] # Seg Neutrophils % Seg Neutrophils # PT INR Thrombin Time Sodium 130 L Potassium Chloride 93.0 L Carbon Dioxide 10 L BUN 25 H Creatinine 1.6 H Glucose 338 H POC Glucose 355 H 271 H Calcium Phosphorus Direct Bilirubin AST ALT Total Creatine Kinase CK-MB (CK-2) Troponin T Albumin 06/02/19 06/02/19 06/02/19 22:08 22:21 23:11 WBC RBC MCV MCH Lymph % (Auto) [place] % (Auto) Lymph # [place] # Seg Neutrophils % Seg Neutrophils # PT INR Thrombin Time Sodium 132 L Potassium Chloride 95.1 L Carbon Dioxide 12 L BUN 27 H Creatinine 1.7 H Glucose 261 H POC Glucose 242 H 193 H Calcium Phosphorus Direct Bilirubin AST ALT Total Creatine Kinase CK-MB (CK-2) Troponin T Albumin 06/02/19 06/02/19 06/02/19 Unknown Unknown Unknown WBC 14.3 H RBC 3.40 L MCV 99 H MCH 33 H Lymph % (Auto) 3.0 L [place] % (Auto) 8.6 H Lymph # 0.4 L [place] # 1.2 H Seg Neutrophils % 87.9 H Seg Neutrophils # 12.6 H PT 15.8 H INR 1.24 H Thrombin Time 14.0 L Sodium 126 L Potassium 5.7 H Chloride 87.0 L Carbon Dioxide 9 L* BUN 25 H Creatinine 1.5 H Glucose 436 H POC Glucose Calcium Phosphorus Direct Bilirubin AST ALT Total Creatine Kinase 1148 H CK-MB (CK-2) 25.9 H Troponin T 3.590 H* Albumin 06/03/19 06/03/19 06/03/19 00:42 01:22 02:08 WBC RBC MCV MCH Lymph % (Auto) [place] % (Auto) Lymph # [place] # Seg Neutrophils % Seg Neutrophils # PT INR Thrombin Time Sodium 130 L 127 L Potassium Chloride 95.1 L 91.8 L Carbon Dioxide 13 L 13 L BUN 29 H 29 H Creatinine 1.7 H 1.7 H Glucose 228 H 237 H POC Glucose 235 H Calcium 8.3 L Phosphorus Direct Bilirubin AST ALT Total Creatine Kinase 1688 H CK-MB (CK-2) 33.7 H Troponin T 6.110 H* D Albumin 06/03/19 06/03/19 06/03/19 02:37 03:54 05:01 WBC RBC MCV MCH Lymph % (Auto) [place] % (Auto) Lymph # [place] # Seg Neutrophils % Seg Neutrophils # PT INR Thrombin Time Sodium Potassium Chloride Carbon Dioxide BUN Creatinine Glucose POC Glucose 241 H 207 H 184 H Calcium Phosphorus Direct Bilirubin AST ALT Total Creatine Kinase CK-MB (CK-2) Troponin T Albumin 06/03/19 06/03/19 06/03/19 06:32 07:39 08:53 WBC RBC MCV MCH Lymph % (Auto) [place] % (Auto) Lymph # [place] # Seg Neutrophils % Seg Neutrophils # PT INR Thrombin Time Sodium Potassium Chloride Carbon Dioxide BUN Creatinine Glucose POC Glucose 194 H 183 H 121 H Calcium Phosphorus Direct Bilirubin AST ALT Total Creatine Kinase CK-MB (CK-2) Troponin T Albumin 06/03/19 06/03/19 06/03/19 10:02 10:50 12:24 WBC RBC MCV MCH Lymph % (Auto) [place] % (Auto) Lymph # [place] # Seg Neutrophils % Seg Neutrophils # PT INR Thrombin Time Sodium Potassium Chloride Carbon Dioxide BUN Creatinine Glucose POC Glucose 114 H 121 H 121 H Calcium Phosphorus Direct Bilirubin AST ALT Total Creatine Kinase CK-MB (CK-2) Troponin T Albumin 06/03/19 06/03/19 06/03/19 12:57 12:57 16:13 WBC RBC MCV MCH Lymph % (Auto) [place] % (Auto) Lymph # [place] # Seg Neutrophils % Seg Neutrophils # PT INR Thrombin Time Sodium 131 L Potassium Chloride 97.3 L Carbon Dioxide 13 L BUN 37 H Creatinine 2.4 H Glucose POC Glucose 140 H Calcium 8.3 L Phosphorus Direct Bilirubin 0.3 H AST 28700 H ALT 4463 H Total Creatine Kinase 1884 H CK-MB (CK-2) 26.0 H Troponin T 7.340 H* D Albumin 3.4 L Assessment and Plan Patient is an 88 y/o woman w/ a h/o HTN, hypothyroidism, DM, and dementia, who p/w slurred speech, falls, and LUE weakness. According to the patient's clinical findings, she has had an acute ischemic stroke. Etiology of stroke is likely cardio-embolic, given that she was found to intermittently be in A-fib. Plan: 1. Stroke: - MRI pending - CT head showed Rt. MCA acute infarct - Check MRA head/neck - Echo: EF 40-45%, bubble study negative. - Cont. ASA - Cont. statin. LDL 84. Goal LDL <70. - PT/OT/ST - DVT Ppx: recommend lovenox 2. Hypertension: - Recommend BP target of <220/120 for next 24 hours to allow for permissive HTN. Recommend target normotension from 06/04/18 3. NSTEMI: - Continue to manage per primary and cardiology teams. - If patient is felt to require therapeutic heparin, there may be risk of hemorrhagic transformation of stroke, however this may be necessary if coronary intervention is required. 4. DKA: - Continue to manage per primary team - Will continue to monitor patient. Thank you for allowing me to take part in the care of this patient. Masoud Dumont MD Neurology
--- NOTE | 2019-06-03 16:56 | Consultation ---
History of Present Illness Consult date: 06/03/19 Reason for Consult: Slurred speech, LUE weakness Chief complaint: Slurred speech, falls, LUE weakness History of present illness: Previous consultation noted entered in error. Please refer to this consult note. Patient is an 88 y/o woman w/ a h/o HTN, hypothyroidism, DM, and dementia. Patient lives in an assisted care facility, and yesterday morning was noted to have fallen twice, and was also noted to have slurred speech and LUE weakness. Patient was then [facility]. CT head was done, which showed that patient had an acute stroke in the right MCA territory. Patient was also found to be in interrmited A-fib, and also found to have a NSTEMI and DKA. At baseline, patient reportedly is independent in ADLs, but only has some cognitive deficits. Past History Past Medical History: diabetes, hypertension, hyperlipidemia, other (hypothyroidism) Past Surgical History: hysterectomy Social history: no significant social history Family history: no significant family history Medications and Allergies Allergies Allergy/AdvReac Type Severity Reaction Status Date / Time Penicillins Allergy Anaphylaxis Verified 06/02/19 17:00 Home Medications Medication Instructions Recorded Confirmed Last Taken Type Levothyroxine [Synthroid] 25 mcg PO DAILY 07/29/13 06/03/19 08/10/13 07:00 History Losartan [Cozaar] 50 mg PO DAILY 07/29/13 06/03/19 08/10/13 07:00 History Metformin HCl [metFORMIN ER] 1,000 mg PO BID 07/29/13 06/03/19 Unknown History Memantine [Namenda] 10 mg PO BID 06/03/19 06/03/19 Unknown History Oxybutynin [Ditropan] 5 mg PO BID 06/03/19 06/03/19 Unknown History Active Meds: Active Medications Acetaminophen (Tylenol) 650 mg PO Q4H PRN PRN Reason: Pain MILD(1-3)/Fever >100.5/LANIER Acetaminophen (Tylenol) 650 mg NC Q4H PRN PRN Reason: Pain MILD(1-3)/Fever >100.5/LANIER Last Admin: 06/03/19 03:15 Dose: 650 mg Documented by: Aspirin (Aspirin) 300 mg NC QDAY ENIO Last Admin: 06/03/19 14:48 Dose: 300 mg Documented by: Bisacodyl (Dulcolax) 10 mg NC QDAY PRN PRN Reason: Constipation Insulin Human Regular 100 (units/ Sodium Chloride) 100 mls @ 1 mls/hr IV TITR ENIO; Protocol Last Titration: 06/03/19 16:07 Dose: 3 units/hr, 3 mls/hr Documented by: Dextrose/Sodium Chloride (D5/0.45ns) 1,000 mls @ 125 mls/hr IV DIRECT ENIO Last Admin: 06/03/19 07:36 Dose: 125 mls/hr Documented by: Sodium Chloride (Nacl 0.9% 1000 Ml) 1,000 mls @ 125 mls/hr IV DIRECT ENIO Magnesium Hydroxide (Milk Of Magnesia) 30 ml PO Q4H PRN PRN Reason: Constipation Ondansetron HCl (Zofran) 4 mg IV Q8H PRN PRN Reason: Nausea And Vomiting Pneumococcal Polyvalent Vaccine (Pneumovax 23) 0.5 ml IM .ONCE ONE Stop: 06/04/19 12:01 Sodium Chloride (Sodium Chloride Flush Syringe 10 Ml) 10 ml IV BID ENIO Last Admin: 06/03/19 10:42 Dose: 10 ml Documented by: Sodium Chloride (Sodium Chloride Flush Syringe 10 Ml) 10 ml IV PRN PRN PRN Reason: LINE FLUSH Review of Systems All systems: negative Neurological: weakness, change in speech, other (falls) Physical Examination - Vital Signs Vital Signs: Vital Signs Pulse Resp BP Pulse Ox 78 22 118/48 97 06/02/19 16:49 06/02/19 16:49 06/02/19 16:49 06/02/19 16:49 - Physical Exam Narrative exam: Patient is awake, alert, oriented 3 minus year, follows complex commands. Noted to have dysarthria. No aphasia noted. PERRL, EOMI, VFF, no facial weakness noted, bilaterally intact light touch, tongue midline. 1/5 in LUE, 5/5 in RUE/RLE/LLE. Bilaterally intact to light touch in all extremities. RUE intact to finger to nose and b/l intact to heel to solo. 2+ reflexes throughout. - Constitutional General appearance: acutely ill - EENT EENT: Present: ATNC, PERRL, mucous membranes moist, hearing intact, vision intact - Respiratory Respiratory: Present: lungs clear, normal breath sounds - Cardiovascular Cardiovascular: Present: regular rate, normal S1, normal S2 Extremities: Present: other (wounds on LUE and LLE) - Gastrointestinal Gastrointestinal: Present: normoactive bowel sounds, soft, non-tender - Musculoskeletal Musculoskeletal: Present: no fluid collection, normal range of motion - Psychiatric Psychiatric: Present: mood/affect appropriate - Level of Consciousness 1a. Level of Consciousness: alert/keenly responsive - LOC Questions 1b. LOC Questions: answers 1 question correctly - LOC Command 1c. LOC Commands: performs tasks correctly - Best Gaze 2. Best Gaze: normal - Visual 3. Visual: no visual loss - Facial Palsy 4. Facial Palsy: normal symmetrical movement - Motor Arm 5a. Motor Arm Left: no gravity effort 5b. Motor Arm Right: no drift - Motor Leg 6a. Motor Leg Left: no drift 6b. Motor Leg Right: no drift - Limb Ataxia 7. Limb Ataxia: absent - Sensory 8. Sensory: normal - Best Language 9. Best Language: no aphasia - Dysarthria 10. Dysarthria: mild/moderate dysarthria - Extinction and Inattention 11. Extinction/Inattention: no abnormality - Scoring Total Score: 5 Stroke Severity: Moderate Stroke Results - Laboratory Findings CBC and BMP: 06/02/19 Unknown 06/03/19 12:57 Abnormal Lab Findings: Abnormal Labs 06/02/19 06/02/19 06/02/19 16:45 18:16 18:16 WBC RBC MCV MCH Lymph % (Auto) [place] % (Auto) Lymph # [place] # Seg Neutrophils % Seg Neutrophils # PT INR Thrombin Time Sodium 126 L Potassium 5.3 H Chloride 88.2 L Carbon Dioxide 10 L BUN 25 H Creatinine 1.5 H Glucose 446 H POC Glucose 441 H Calcium Phosphorus 5.60 H Direct Bilirubin AST ALT Total Creatine Kinase CK-MB (CK-2) Troponin T Albumin 06/02/19 06/02/19 06/02/19 19:03 20:38 21:03 WBC RBC MCV MCH Lymph % (Auto) [place] % (Auto) Lymph # [place] # Seg Neutrophils % Seg Neutrophils # PT INR Thrombin Time Sodium 130 L Potassium Chloride 93.0 L Carbon Dioxide 10 L BUN 25 H Creatinine 1.6 H Glucose 338 H POC Glucose 355 H 271 H Calcium Phosphorus Direct Bilirubin AST ALT Total Creatine Kinase CK-MB (CK-2) Troponin T Albumin 06/02/19 06/02/1906/02/19 22:08 22:21 23:11 WBC RBC MCV MCH Lymph % (Auto) [place] % (Auto) Lymph # [place] # Seg Neutrophils % Seg Neutrophils # PT INR Thrombin Time Sodium 132 L Potassium Chloride 95.1 L Carbon Dioxide 12 L BUN 27 H Creatinine 1.7 H Glucose 261 H POC Glucose 242 H 193 H Calcium Phosphorus Direct Bilirubin AST ALT Total Creatine Kinase CK-MB (CK-2) Troponin T Albumin 06/02/19 06/02/19 06/02/19 Unknown Unknown Unknown WBC 14.3 H RBC 3.40 L MCV 99 H MCH 33 H Lymph % (Auto) 3.0 L [place] % (Auto) 8.6 H Lymph # 0.4 L [place] # 1.2 H Seg Neutrophils % 87.9 H Seg Neutrophils # 12.6 H PT 15.8 H INR 1.24 H Thrombin Time 14.0 L Sodium 126 L Potassium 5.7 H Chloride 87.0 L Carbon Dioxide 9 L* BUN 25 H Creatinine 1.5 H Glucose 436 H POC Glucose Calcium Phosphorus Direct Bilirubin AST ALT Total Creatine Kinase 1148 H CK-MB (CK-2) 25.9 H Troponin T 3.590 H* Albumin 06/03/19 06/03/19 06/03/19 00:42 01:22 02:08 WBC RBC MCV MCH Lymph % (Auto) [place] % (Auto) Lymph # [place] # Seg Neutrophils % Seg Neutrophils # PT INR Thrombin Time Sodium 130 L 127 L Potassium Chloride 95.1 L 91.8 L Carbon Dioxide 13 L 13 L BUN 29 H 29 H Creatinine 1.7 H 1.7 H Glucose 228 H 237 H POC Glucose 235 H Calcium 8.3 L Phosphorus Direct Bilirubin AST ALT Total Creatine Kinase 1688 H CK-MB (CK-2) 33.7 H Troponin T 6.110 H* D Albumin 06/03/19 06/03/19 06/03/19 02:37 03:54 05:01 WBC RBC MCV MCH Lymph % (Auto) [place] % (Auto) Lymph # [place] # Seg Neutrophils % Seg Neutrophils # PT INR Thrombin Time Sodium Potassium Chloride Carbon Dioxide BUN Creatinine Glucose POC Glucose 241 H 207 H 184 H Calcium Phosphorus Direct Bilirubin AST ALT Total Creatine Kinase CK-MB (CK-2) Troponin T Albumin 06/03/19 06/03/19 06/03/19 06:32 07:39 08:53 WBC RBC MCV MCH Lymph % (Auto) [place] % (Auto) Lymph # [place] # Seg Neutrophils % Seg Neutrophils # PT INR Thrombin Time Sodium Potassium Chloride Carbon Dioxide BUN Creatinine Glucose POC Glucose 194 H 183 H 121 H Calcium Phosphorus Direct Bilirubin AST ALT Total Creatine Kinase CK-MB (CK-2) Troponin T Albumin 06/03/19 06/03/19 06/03/19 10:02 10:50 12:24 WBC RBC MCV MCH Lymph % (Auto) [place] % (Auto) Lymph # [place] # Seg Neutrophils % Seg Neutrophils # PT INR Thrombin Time Sodium Potassium Chloride Carbon Dioxide BUN Creatinine Glucose POC Glucose 114 H 121 H 121 H Calcium Phosphorus Direct Bilirubin AST ALT Total Creatine Kinase CK-MB (CK-2) Troponin T Albumin 06/03/19 06/03/19 06/03/19 12:57 12:57 16:13 WBC RBC MCV MCH Lymph % (Auto) [place] % (Auto) Lymph # [place] # Seg Neutrophils % Seg Neutrophils # PT INR Thrombin Time Sodium 131 L Potassium Chloride 97.3 L Carbon Dioxide 13 L BUN 37 H Creatinine 2.4 H Glucose POC Glucose 140 H Calcium 8.3 L Phosphorus Direct Bilirubin 0.3 H AST 60744 H ALT 4463 H Total Creatine Kinase 1884 H CK-MB (CK-2) 26.0 H Troponin T 7.340 H* D Albumin 3.4 L Assessment and Plan Patient is an 88 y/o woman w/ a h/o HTN, hypothyroidism, DM, and dementia, who p/w slurred speech, falls, and LUE weakness. According to the patient's clinical findings, she has had an acute ischemic stroke. Etiology of stroke is likely cardio-embolic, given that she was found to intermittently be in A-fib. Plan: 1. Stroke: - MRI pending - CT head showed Rt. MCA acute infarct - Check MRA head/neck - Echo: EF 40-45%, bubble study negative. - Cont. ASA - Patient will require to be started on anti-coagulation given A-fib, however will wait for MRI to decide on timing, to reduce risk of hemorrhagic transformation. - Cont. statin. LDL 84. Goal LDL <70. - PT/OT/ST - DVT Ppx: recommend lovenox 2. Hypertension: - Recommend BP target of <220/120 for next 24 hours to allow for permissive HTN. Recommend target normotension from 06/04/18 3. NSTEMI: - Continue to manage per primary and cardiology teams. - If patient is felt to require therapeutic heparin, there may be risk of hemorrhagic transformation of stroke, however this may be necessary if coronary intervention is required. Will defer to cardiology. 4. DKA: - Continue to manage per primary team - Will continue to monitor patient. Thank you for allowing me to take part in the care of this patient. Masoud Dumont MD Neurology
--- NOTE | 2019-06-03 17:17 | Consultation ---
History of Present Illness Consult date: 06/03/19 Requesting physician: SHAI KUMAR Consult reason: abnormal cardiac enzymes History of present illness: Ms. Landry is an 88 y/o female admitted with an acute CVA. She originally presented from her assisted living facility with altered mental status. She is a poor historian, so HPI obtained from daughters at bedside and from the chart. Facility staff also report that she complained of chest pain on Saturday. Her medical history is significant for hypertension, dementia and diabetes. She is not known to our practice, but has had cardiac testing done at [place]. CT of the head revealed an acute CVA and lab results were consistent with DKA. Earlier today, she also had an extended run of afib with RVR, but subsequently converted to NSR. Troponins peaked to 7.[address] some ST- elevation in leads III and aVF with some depressions in other leads. Past History Past Medical History: diabetes, hypertension, hyperlipidemia, other (hypothyroidism) Past Surgical History: hysterectomy Social history: no significant social history Family history: no significant family history Medications and Allergies Allergies Allergy/AdvReac Type Severity Reaction Status Date / Time Penicillins Allergy Anaphylaxis Verified 06/02/19 17:00 Home Medications Medication Instructions Recorded Confirmed Last Taken Type Levothyroxine [Synthroid] 25 mcg PO DAILY 07/29/13 06/03/19 08/10/13 07:00 History Losartan [Cozaar] 50 mg PO DAILY 07/29/13 06/03/19 08/10/13 07:00 History Metformin HCl [metFORMIN ER] 1,000 mg PO BID 07/29/13 06/03/19 Unknown History Memantine [Namenda] 10 mg PO BID 06/03/19 06/03/19 Unknown History Oxybutynin [Ditropan] 5 mg PO BID 06/03/19 06/03/19 Unknown History Active Meds: Active Medications Acetaminophen (Tylenol) 650 mg PO Q4H PRN PRN Reason: Pain MILD(1-3)/Fever >100.5/LANIER Acetaminophen (Tylenol) 650 mg DE Q4H PRN PRN Reason: Pain MILD(1-3)/Fever >100.5/LANIER Last Admin: 06/03/19 03:15 Dose: 650 mg Documented by: Aspirin (Aspirin) 300 mg DE QDAY [facility] Last Admin: 06/03/19 14:48 Dose: 300 mg Documented by: Bisacodyl (Dulcolax) 10 mg DE QDAY PRN PRN Reason: Constipation Insulin Human Regular 100 (units/ Sodium Chloride) 100 mls @ 1 mls/hr IV TITR ENIO; Protocol Last Titration: 06/03/19 16:07 Dose: 3 units/hr, 3 mls/hr Documented by: Dextrose/Sodium Chloride (D5/0.45ns) 1,000 mls @ 125 mls/hr IV DIRECT ENIO Last Admin: 06/03/19 07:36 Dose: 125 mls/hr Documented by: Sodium Chloride (Nacl 0.9% 1000 Ml) 1,000 mls @ 125 mls/hr IV DIRECT ENIO Magnesium Hydroxide (Milk Of Magnesia) 30 ml PO Q4H PRN PRN Reason: Constipation Ondansetron HCl (Zofran) 4 mg IV Q8H PRN PRN Reason: Nausea And Vomiting Pneumococcal Polyvalent Vaccine (Pneumovax 23) 0.5 ml IM .ONCE ONE Stop: 06/04/19 12:01 Sodium Chloride (Sodium Chloride Flush Syringe 10 Ml) 10 ml IV BID [facility] Last Admin: 06/03/19 10:42 Dose: 10 ml Documented by: Sodium Chloride (Sodium Chloride Flush Syringe 10 Ml) 10 ml IV PRN PRN PRN Reason: LINE FLUSH Review of Systems ROS unobtainable: due to mental status Physical Examination Vital Signs Pulse Resp BP Pulse Ox 78 22 118/48 97 06/02/19 16:49 06/02/19 16:49 06/02/19 16:49 06/02/19 16:49 General appearance: mild distress HEENT: Positive: PERRL Neck: Positive: neck supple Cardiac: Positive: Reg Rate and Rhythm Lungs: Positive: Other (coarse) Neuro: Positive: Other (confused) Abdomen: Positive: Unremarkable Female genitourinary: deferred Skin: Positive: Clear Musculoskeletal: other (CB) Extremities: Present: normal Results 06/02/19 Unknown 06/03/19 12:57 Cardiac Enzymes 06/02/19 06/03/19 06/03/19 Range/Units Unknown 02:08 12:57 AST 87610 H (5-40) units/L CK-MB (CK-2) 25.9 H 33.7 H (0.0-4.0) ng/mL 06/03/19 Range/Units 12:57 AST (5-40) units/L CK-MB (CK-2) 26.0 H (0.0-4.0) ng/mL Coagulation 06/02/19 Range/Units Unknown PT 15.8 H (12.2-14.9) Sec. INR 1.24 H (0.87-1.13) APTT 36.3 (24.2-36.6) Sec. Lipids 06/02/19 Range/Units Unknown Triglycerides 73 (2-149) mg/dL Cholesterol 123 (50-199) mg/dL HDL Cholesterol 42 (40-59) mg/dL Cholesterol/HDL Ratio 2.92 % CBC 06/02/19 Range/Units Unknown WBC 14.3 H (4.5-11.0) K/mm3 RBC 3.40 L (3.65-5.03) M/mm3 Hgb 11.1 (10.1-14.3) gm/dl Hct 33.6 (30.3-42.9) % Plt Count 207 (140-440) K/mm3 Lymph # 0.4 L (1.2-5.4) K/mm3 [place] # 1.2 H (0.0-0.8) K/mm3 Eos # 0.0 (0.0-0.4) K/mm3 Baso # 0.1 (0.0-0.1) K/mm3 Comprehensive Metabolic Panel 06/02/19 06/02/19 06/02/19 Range/Units 18:16 20:38 22:21 Sodium 126 L 130 L 132 L (137-145) mmol/L Potassium 5.3 H 5.0 4.8 (3.6-5.0) mmol/L Chloride 88.2 L 93.0 L 95.1 L (98-107) mmol/L Carbon Dioxide 10 L 10 L 12 L (22-30) mmol/L BUN 25 H 25 H 27 H (7-17) mg/dL Creatinine 1.5 H 1.6 H 1.7 H (0.7-1.2) mg/dL Glucose 446 H 338 H 261 H (65-100) mg/dL Calcium 8.9 8.4 8.5 (8.4-10.2) mg/dL Direct Bilirubin (0-0.2) mg/dL Indirect Bilirubin mg/dL AST (5-40) units/L ALT (7-56) units/L Alkaline Phosphatase (35-129) units/L Total Protein (6.3-8.2) g/dL Albumin (3.9-5) g/dL 06/02/19 06/03/19 06/03/19 Range/Units Unknown 00:42 02:08 Sodium 126 L 130 L 127 L (137-145) mmol/L Potassium 5.7 H 4.5 4.8 (3.6-5.0) mmol/L Chloride 87.0 L 95.1 L 91.8 L (98-107) mmol/L Carbon Dioxide 9 L* 13 L 13 L (22-30) mmol/L BUN 25 H 29 H 29 H (7-17) mg/dL Creatinine 1.5 H 1.7 H 1.7 H (0.7-1.2) mg/dL Glucose 436 H 228 H 237 H (65-100) mg/dL Calcium 8.8 8.3 L 8.4 (8.4-10.2) mg/dL Direct Bilirubin (0-0.2) mg/dL Indirect Bilirubin mg/dL AST (5-40) units/L ALT (7-56) units/L Alkaline Phosphatase (35-129) units/L Total Protein (6.3-8.2) g/dL Albumin (3.9-5) g/dL 06/03/19 Range/Units 12:57 Sodium 131 L (137-145) mmol/L Potassium 4.2 (3.6-5.0) mmol/L Chloride 97.3 L (98-107) mmol/L Carbon Dioxide 13 L (22-30) mmol/L BUN 37 H (7-17) mg/dL Creatinine 2.4 H (0.7-1.2) mg/dL Glucose 100 (65-100) mg/dL Calcium 8.3 L (8.4-10.2) mg/dL Direct Bilirubin 0.3 H (0-0.2) mg/dL Indirect Bilirubin 0.4 mg/dL AST 46481 H (5-40) units/L ALT 4463 H (7-56) units/L Alkaline Phosphatase 73 (35-129) units/L Total Protein 6.5 (6.3-8.2) g/dL Albumin 3.4 L (3.9-5) g/dL - Imaging and Cardiology Echo: pending EKG interpretations - Telemetry EKG Rhythm: Sinus Rhythm Assessment and Plan Ms. Landry is an 88 y/o female admitted with an acute CVA. Presentation is consistent with a probable STEMI. However, she is not a candidate for intervention at this time. Conservative medical management is recommended. Will initiate beta laurie and statin when PO intake is resumed. No anticoagulation as per neurology, but she may benefit from OAC in the future d/t elevated [id number] score. Continue current cardiac management for now. T - Patient Problems (1) STEMI (ST elevation myocardial infarction) Current Visit: Yes Status: Acute Plan to address problem: Not a candidate for intervention. Conservative medical management. (2) Acute CVA (cerebrovascular accident) Current Visit: Yes Status: Acute (3) Paroxysmal atrial fibrillation with rapid ventricular response Current Visit: Yes Status: Acute (4) Diabetic ketoacidosis Current Visit: Yes Status: Acute (5) Dementia Current Visit: Yes Status: Chronic (6) Diabetes Current Visit: Yes Status: Chronic (7) Elevated LFTs Current Visit: Yes Status: Acute
[2019-06-03 20:08] LABS: Calcium 7.7 mg/dL (8.4-10.2)
[2019-06-04] MEDS ORDERED: METOPROLOL TARTRATE 5 MG/5 ML INJ IV ONE ×2 (01:24→01:27)
[2019-06-04 04:37] LABS: Calcium 7.7 mg/dL (8.4-10.2)
[2019-06-04 05:22] LABS: Calcium 7.7 mg/dL (8.4-10.2)
[2019-06-04] MEDS ORDERED: D5W/0.45% NACL 1,000 ML IV ONE (06:09)
[2019-06-04 06:24] LABS: Hemolysis Index 214
[2019-06-04 07:01] LABS: BUN/Creatinine Ratio TNR; Blood Urea Nitrogen TNR mg/dL (7-17); Calcium TNR mg/dL (8.4-10.2)
[2019-06-04] MEDS: ASPIRIN 300 MG RECT SUPP PR SCH (10:10)
[2019-06-04 11:22] LABS: Hematocrit 32.8 % (30.3-42.9); Hemoglobin 11.1 gm/dl (10.1-14.3); Mean Corpuscular HGB Conc 34 % (30-34); Mean Corpuscular Volume 96 fl (79-97); Platelet Count 114 K/mm3 (140-440); Red Blood Count 3.41 M/mm3 (3.65-5.03); Red Cell Distribution Width 13.5 % (13.2-15.2)
--- NOTE | 2019-06-04 11:39 | Progress Note ---
Assessment and Plan Ms. Landry is an 88 y/o female admitted with an acute CVA. Presentation is consistent with a probable STEMI. However, she is not a candidate for intervention at this time. Conservative medical management is recommended. She is noted to be in AFib with RVR. No anticoagulation as per neurology, but she may benefit from OAC in the future d/t elevated [id number] score. Optimize HR - initiate IV amio. Monitor LFTs. The patient has been seen in conjunction with Dr. Brown who agrees with the assessment and plan of care. - Patient Problems (1) STEMI (ST elevation myocardial infarction) Current Visit: Yes Status: Acute Plan to address problem: Not a candidate for intervention. Conservative medical management. (2) Acute CVA (cerebrovascular accident) Current Visit: Yes Status: Acute (3) Paroxysmal atrial fibrillation with rapid ventricular response Current Visit: Yes Status: Acute (4) Diabetic ketoacidosis Current Visit: Yes Status: Acute (5) Dementia Current Visit: Yes Status: Chronic (6) Diabetes Current Visit: Yes Status: Chronic (7) Elevated LFTs Current Visit: Yes Status: Acute Subjective Date of service: 06/04/19 Principal diagnosis: abn ekg; ARF; elevated LFTs Interval history: pt resting in bed, lethargic. in AFib with RVR on tele. niece at bedside. Objective Last Vital Signs Temp 98.0 F 06/03/19 15:11 Pulse 148 H 06/04/19 11:00 Resp 18 06/04/19 11:00 BP 144/101 06/04/19 11:00 Pulse Ox 100 06/04/19 11:00 - Physical Examination General: Other (lethargic) HEENT: Positive: PERRL Neck: Positive: neck supple Cardiac: Positive: irregularly irregular, S1/S2, Tachycardia Lungs: Positive: Decreased Breath Sounds Neuro: Positive: Other (confused) Abdomen: Positive: Unremarkable Skin: Positive: Clear Musculoskeletal: other (CB) Extremities: Present: normal - Labs and Meds Cardiac Enzymes 06/03/19 06/03/19 Range/Units 12:57 12:57 AST 10604 H (5-40) units/L CK-MB (CK-2) 26.0 H (0.0-4.0) ng/mL CBC 06/04/19 Range/Units 11:08 WBC 11.4 H (4.5-11.0) K/mm3 RBC 3.41 L (3.65-5.03) M/mm3 Hgb 11.1 (10.1-14.3) gm/dl Hct 32.8 (30.3-42.9) % Plt Count 114 L (140-440) K/mm3 Comprehensive Metabolic Panel 06/03/19 06/03/19 06/04/19 Range/Units 12:57 19:32 03:20 Sodium 131 L 129 L 127 L (137-145) mmol/L Potassium 4.2 4.1 4.3 (3.6-5.0) mmol/L Chloride 97.3 L 96.1 L 95.1 L (98-107) mmol/L Carbon Dioxide 13 L 15 L 13 L (22-30) mmol/L BUN 37 H 40 H 41 H (7-17) mg/dL Creatinine 2.4 H 2.8 H 2.7 H (0.7-1.2) mg/dL Glucose 100 165 H 139 H (65-100) mg/dL Calcium 8.3 L 7.7 L 7.7 L (8.4-10.2) mg/dL Direct Bilirubin 0.3 H (0-0.2) mg/dL Indirect Bilirubin 0.4 mg/dL AST 42561 H (5-40) units/L ALT 4463 H (7-56) units/L Alkaline Phosphatase 73 (35-129) units/L Total Protein 6.5 (6.3-8.2) g/dL Albumin 3.4 L (3.9-5) g/dL 06/04/19 06/04/19 Range/Units 04:50 05:53 Sodium 129 L TNR (137-145) mmol/L Potassium 4.0 TNR (3.6-5.0) mmol/L Chloride 95.2 L TNR (98-107) mmol/L Carbon Dioxide 16 L TNR (22-30) mmol/L BUN 43 H TNR (7-17) mg/dL Creatinine 3.0 H TNR (0.7-1.2) mg/dL Glucose 152 H TNR (65-100) mg/dL Calcium 7.7 L TNR (8.4-10.2) mg/dL Direct Bilirubin (0-0.2) mg/dL Indirect Bilirubin mg/dL AST (5-40) units/L ALT (7-56) units/L Alkaline Phosphatase (35-129) units/L Total Protein (6.3-8.2) g/dL Albumin (3.9-5) g/dL - Imaging and Cardiology Echo: pending
[2019-06-04 11:49] LABS: Calcium 7.8 mg/dL (8.4-10.2)
[2019-06-04 11:53] LABS: Bilirubin,Direct 0.5 mg/dL (0-0.2)
[2019-06-04] MEDS ORDERED: FLU VACC QUAD 2019-20 (3 YR UP)/PF 60 MCG/0.5 ML SYRINGE IM ONE (12:00)
[2019-06-04] MEDS ORDERED: AMIODARONE 150 MG in DEXTROSE 5% IN WATER 97 ML IV ONE (12:00)
[2019-06-04] MEDS ORDERED: AMIODARONE 900 MG in DEXTROSE 5% IN WATER 482 ML IV SCH (12:00)
[2019-06-04] MEDS ORDERED: PNEUMOCOCCAL 23 Valent 0.5 ML VIAL IM ONE (12:00)
--- NOTE | 2019-06-04 12:40 | Progress Note ---
Assessment and Plan Assessment and plan: Patient is a 88-year-old woman from [facility] with a history of dementia and DM type 2 who presented to [facility] ED with AMS. 1 day prior to arrival the assisted living facility told her daughter Shefali that patient need help eating and falling which is never the case. She has been admitted for obvious stroke, DKA on insulin drip DKA with severe metabolic acidosis Start DKA protocol with insulin drip Start IV fluids, monitor serial chemistry Consult critical care NSTEMI-->STEMI Check cardiac enzymes, echo, consulted and d/w Dr. Kapoor cardiology Start aspirin, hold beta-blockers in the acute phase due to acute stroke. No heparin drip for now per cardiology Now Cardiology is calling this a STEMI Acute CVA Obtain MRI of the head, neck, echo Do neuro checks, consult neurology, PT, OT Start aspirin, statin when awake Rhabdomyolysis secondary to fall Continue IV fluid, monitor CK level SIRS, noninfectious empiric Start IV Levaquin obtain blood cultures, urinalysis Abdominal distention Check CT abdomen=>chronic cholecystitis, d/w Dr. Arellano Hyperkalemia Improving, continue to monitor DVT prophylaxis AFib with RVR Cardiology is following Acute metabolic encephalopathy Urinary retention, UOP poor, intravolume depleted but accelerated hypertension due to stroke, give more volume carefully. DNR poor prognosis tyring to get her off the insulin drip to downgrade her from ICU, corrected anion gap still high Daughter request Jeremy transfer to patient's PCP, Dr. Connell, , I called [place] [facility] at [phone] and spoke with Daisha. Patient goes to [facility] [place] [facility]. Daisha says they have no ICU beds either but will reach out to them CCT 32 minutes History Interval history: Patient was seen and examined. Follow-up on current diagnosis of CVA. Overnight uneventful as no events directly reported to me. Imaging, nursing note, chart, labs and old chart reviewed. Discussed with nursing. D/W Shefali at bedside, only child. They have been waiting in ED for ICU for more than 24 hours and they have contacted their [place] physician, Dr. Flower. Hospitalist Physical - Physical exam Narrative exam: Gen: thin frial, critically ill appearing NAD, confused HEENT: NCAT, , gaze perference, PERRL, OP Clear, tongue deviates Neck: supple, no adenopathy, no thyromegaly, no JVD CVS/Heart: irregular irregular normal S1S2, pulses present bilaterally Chest/Lungs: diminished bs bilateral, Symmetrical chest expansion, good air entry bilaterally GI/Abdomen: soft, NT. distended, good bowel sounds, no guarding or rebound /Bladder: no suprapubic tenderness, no CVA or paraspinal tenderness Extermity/Skin: no c/c/e, no obvious rash MSK: FROM x 3, left hemiparesis Neuro: CN 2-12 grossly intact except speech, facial asymmetry, duys Psych: calm - Constitutional Vitals: Temp Pulse Resp BP Pulse Ox 98.0 F 148 H 18 144/101 100 06/03/19 15:11 06/04/19 11:00 06/04/19 11:00 06/04/19 11:00 06/04/19 11:00 General appearance: Absent: mild distress Results - Labs CBC & Chem 7: 06/04/19 11:08 06/04/19 11:08 Labs: Laboratory Last Values WBC 11.4 K/mm3 (4.5-11.0) H 06/04/19 11:08 RBC 3.41 M/mm3 (3.65-5.03) L 06/04/19 11:08 Hgb 11.1 gm/dl (10.1-14.3) 06/04/19 11:08 Hct 32.8 % (30.3-42.9) 06/04/19 11:08 MCV 96 fl (79-97) 06/04/19 11:08 MCH 33 pg (28-32) H 06/04/19 11:08 MCHC 34 % (30-34) 06/04/19 11:08 RDW 13.5 % (13.2-15.2) 06/04/19 11:08 Plt Count 114 K/mm3 (140-440) L 06/04/19 11:08 Lymph % (Auto) 3.0 % (13.4-35.0) L 06/02/19 Unknown [place] % (Auto) 8.6 % (0.0-7.3) H 06/02/19 Unknown Eos % (Auto) 0.1 % (0.0-4.3) 06/02/19 Unknown Baso % (Auto) 0.4 % (0.0-1.8) 06/02/19 Unknown Lymph # 0.4 K/mm3 (1.2-5.4) L 06/02/19 Unknown [place] # 1.2 K/mm3 (0.0-0.8) H 06/02/19 Unknown Eos # 0.0 K/mm3 (0.0-0.4) 06/02/19 Unknown Baso # 0.1 K/mm3 (0.0-0.1) 06/02/19 Unknown Seg Neutrophils % 87.9 % (40.0-70.0) H 06/02/19 Unknown Seg Neutrophils # 12.6 K/mm3 (1.8-7.7) H 06/02/19 Unknown PT 15.8 Sec. (12.2-14.9) H 06/02/19 Unknown INR 1.24 (0.87-1.13) H 06/02/19 Unknown APTT 36.3 Sec. (24.2-36.6) 06/02/19 Unknown Thrombin Time 14.0 Sec. (15.1-19.6) L 06/02/19 Unknown POC ABG pH 7.358 (7.35-7.45) 06/02/19 18:22 POC ABG pO2 93 (80-105) 06/02/19 18:22 POC ABG HCO3 9.9 (22-26 mml/L) 06/02/19 18:22 POC ABG Total CO2 10 (23-27mmol/L) 06/02/19 18:22 POC ABG O2 Sat 97 06/02/19 18:22 POC ABG Base Excess -16 ((-2) - (+3)mmol/L) 06/02/19 18:22 FiO2 21 % 06/02/19 18:22 Sodium 126 mmol/L (137-145) L 06/04/19 11:08 Potassium 4.0 mmol/L (3.6-5.0) 06/04/19 11:08 Chloride 94.2 mmol/L (98-107) L 06/04/19 11:08 Carbon Dioxide 12 mmol/L (22-30) L 06/04/19 11:08 Anion Gap 24 mmol/L 06/04/19 11:08 BUN 44 mg/dL (7-17) H 06/04/19 11:08 Creatinine 2.7 mg/dL (0.7-1.2) H 06/04/19 11:08 Estimated GFR 17 ml/min 06/04/19 11:08 BUN/Creatinine Ratio 16 % 06/04/19 11:08 Glucose 152 mg/dL (65-100) H 06/04/19 11:08 POC Glucose 145 (70-105) H 06/04/19 10:08 Ketones Quantitative Negative (Negative) 06/02/19 18:16 Calcium 7.8 mg/dL (8.4-10.2) L 06/04/19 11:08 Phosphorus 4.30 mg/dL (2.5-4.5) 06/04/19 03:20 Magnesium 2.00 mg/dL (1.7-2.3) 06/04/19 03:20 Total Bilirubin 0.90 mg/dL (0.1-1.2) 06/04/19 11:08 Direct Bilirubin 0.5 mg/dL (0-0.2) H 06/04/19 11:08 Indirect Bilirubin 0.4 mg/dL 06/04/19 11:08 AST 2876 units/L (5-40) H 06/04/19 11:08 ALT 2819 units/L (7-56) H 06/04/19 11:08 Alkaline Phosphatase 88 units/L (35-129) 06/04/19 11:08 Total Creatine Kinase 1884 units/L (30-135) H 06/03/19 12:57 CK-MB (CK-2) 26.0 ng/mL (0.0-4.0) H 06/03/19 12:57 CK-MB (CK-2) Rel Index 1.3 (0-4) 06/03/19 12:57 Troponin T 7.340 ng/mL (0.00-0.029) H* D 06/03/19 12:57 Total Protein 6.0 g/dL (6.3-8.2) L 06/04/19 11:08 Albumin 3.0 g/dL (3.9-5) L 06/04/19 11:08 Albumin/Globulin Ratio 1.0 % 06/04/19 11:08 Triglycerides 73 mg/dL (2-149) 06/02/19 Unknown Cholesterol 123 mg/dL (50-199) 06/02/19 Unknown LDL Cholesterol Direct 84 mg/dL (50-130) 06/02/19 Unknown HDL Cholesterol 42 mg/dL (40-59) 06/02/19 Unknown Cholesterol/HDL Ratio 2.92 % 06/02/19 Unknown TSH 1.910 mlU/mL (0.270-4.200) 06/04/19 04:50 Urine Color Ana (Yellow) 06/02/19 18:44 Urine Turbidity Cloudy (Clear) 06/02/19 18:44 Urine pH 5.0 (5.0-7.0) 06/02/19 18:44 Ur Specific Ledbetter 1.020 (1.003-1.030) 06/02/19 18:44 Urine Protein 100 mg/dl mg/dL (Negative) 06/02/19 18:44 Urine Glucose (UA) >=500 mg/dL (Negative) 06/02/19 18:44 Urine Ketones Tr mg/dL (Negative) 06/02/19 18:44 Urine Blood Lg (Negative) 06/02/19 18:44 Urine Nitrite Neg (Negative) 06/02/19 18:44 Urine Bilirubin Neg (Negative) 06/02/19 18:44 Urine Urobilinogen < 2.0 mg/dL (<2.0) 06/02/19 18:44 Ur Leukocyte Esterase Neg (Negative) 06/02/19 18:44 Urine WBC (Auto) 2.0 /HPF (0.0-6.0) 06/02/19 18:44 Urine RBC (Auto) < 1.0 /HPF (0.0-6.0) 06/02/19 18:44 U Epithel Cells (Auto) 1.0 /HPF (0-13.0) 06/02/19 18:44 Hyaline Casts 3 /LPF 06/02/19 18:44 Urine Mucus Few /HPF 06/02/19 18:44 Urine Yeast (Budding) 1+ /HPF 06/02/19 18:44 Active Medications - Current Medications Current Medications: Generic Name Dose Route Start Last Admin Trade Name Freq PRN Reason Stop Dose Admin Acetaminophen 650 mg 06/02/19 22:22 Tylenol PO Q4H PRN Pain MILD(1-3)/Fever >100.5/LANIER Acetaminophen 650 mg 06/02/19 22:22 06/03/19 03:15 Tylenol DC 650 mg Q4H PRN Administration Pain MILD(1-3)/Fever >100.5/LANIER Aspirin 300 mg 06/03/19 10:00 06/04/19 10:10 Aspirin DC 300 mg QDAY ENIO Administration Bisacodyl 10 mg 06/02/19 22:24 Dulcolax DC QDAY PRN Constipation Insulin Human Regular 100 100 mls @ 1 mls/hr 06/02/19 18:45 06/04/19 08:41 units/ Sodium Chloride IV 3 units/hr TITR ENIO 3 mls/hr Titration Protocol 1 UNITS/HR Dextrose/Sodium Chloride 1,000 mls @ 125 mls/hr 06/02/19 23:00 06/03/19 17:24 D5/0.45ns IV 125 mls/hr DIRECT ENIO Administration Sodium Chloride 1,000 mls @ 125 mls/hr 06/02/19 22:30 Nacl 0.9% 1000 Ml IV DIRECT ENIO Amiodarone HCl 900 mg/ 500 mls @ 33.333 mls/hr 06/04/19 12:00 Dextrose IV DIRECT ENIO Protocol 1 MG/MIN Magnesium Hydroxide 30 ml 06/02/19 22:24 Milk Of Magnesia PO Q4H PRN Constipation Ondansetron HCl 4 mg 06/02/19 22:22 Zofran IV Q8H PRN Nausea And Vomiting Sodium Chloride 10 ml 06/03/19 10:00 06/04/19 10:10 Sodium Chloride Flush Syringe 10 Ml IV 10 ml BID ENIO Administration Sodium Chloride 10 ml 06/02/19 22:22 Sodium Chloride Flush Syringe 10 Ml IV PRN PRN LINE FLUSH
[2019-06-04] MEDS ORDERED: LORazepam 2 MG/ML VIAL IV ONE (13:19)
--- NOTE | 2019-06-04 14:29 | Event Note ---
Date: 06/04/19 Pt converted to NSR prior to IV amiodarone administration. Will hold IV amio at this time. Pt is currently NPO, lethargic. Can consider PO amio if/when enteral intake is tolerated. If she develops AFib with RVR again, will proceed with IV amio as BPs remain borderline low. Javier COSME, CODY / DR. MARQUIS
--- NOTE | 2019-06-04 15:20 | Progress Note ---
Assessment and Plan 88 yo F with 1. abnormal gallbladder on CT 2. acute liver injury 3. AMS 4. possible CVA Abd u/s - gallbladder wall shows edema but no calculi definitively seen. Wall mildly thickened. Plan: 1. NPO until speech eval performed 2. IVF 3. cardiology on board 4. IV abx - empiric 5. LFTs improving. Pattern more suggestive of acute liver injury and less likely related to gallbladder pathology. Bilirubin ok. 7. CBC, BMP daily 8. neurology on board 9. Bl cx and urine cx Unlikely that patient has acute cholecystitis based on current findings. In addition, she has multiple concurrent active medical issues including stroke, STEMI, DKA, electrolyte abnormalities making her a poor candidate for surgery. If the patient has fever, WBC starts trending upwards, abdominal pain, intolerance to PO diet would recommend HIDA scan to further eval gallbladder. Imaging results discussed with daughter at bedside as well as surgical recommendations. No acute surgical intervention at this time. All questions answered. Will s/o. Thank you, please call with questions Subjective Date of service: 06/04/19 Narrative: Patient seen and examined. She states that she has chest pain when she coughs. Denies abdominal pain. No fevers, chills overnight. Objective Vital Signs - 12hr 06/04/19 06/04/19 06/04/19 04:00 05:00 07:00 Pulse Rate 79 71 132 H Respiratory 22 19 18 Rate Blood Pressure 132/66 93/52 121/75 O2 Sat by Pulse 100 100 100 Oximetry 06/04/19 06/04/19 06/04/19 08:00 09:01 10:01 Pulse Rate 132 H 126 H 155 H Respiratory 18 18 14 Rate Blood Pressure 121/72 144/89 105/66 O2 Sat by Pulse 100 100 100 Oximetry 06/04/19 06/04/19 11:00 12:00 Pulse Rate 148 H 84 Respiratory 18 22 Rate Blood Pressure 144/101 172/93 O2 Sat by Pulse 100 99 Oximetry - General physical appearance Narrative Exam: Gen.: Awake and alert. No apparent distress ENT: No scleral icterus or conjunctival pallor CV: S1, S2 present Respiratory: Positive productive cough. Abdomen: Soft, nontender, nondistended Extremities: No clubbing, cyanosis, edema - Labs 06/04/19 11:08 06/04/19 11:08 Diabetes panel 06/03/19 06/04/19 06/04/19 Range/Units 19:32 03:20 04:50 Sodium 129 L 127 L 129 L (137-145) mmol/L Potassium 4.1 4.3 4.0 (3.6-5.0) mmol/L Chloride 96.1 L 95.1 L 95.2 L (98-107) mmol/L Carbon Dioxide 15 L 13 L 16 L (22-30) mmol/L BUN 40 H 41 H 43 H (7-17) mg/dL Creatinine 2.8 H 2.7 H 3.0 H (0.7-1.2) mg/dL Glucose 165 H 139 H 152 H (65-100) mg/dL Calcium 7.7 L 7.7 L 7.7 L (8.4-10.2) mg/dL AST (5-40) units/L ALT (7-56) units/L Alkaline Phosphatase (35-129) units/L Total Protein (6.3-8.2) g/dL Albumin (3.9-5) g/dL 06/04/19 06/04/19 06/04/19 Range/Units 05:53 11:08 11:08 Sodium TNR 126 L (137-145) mmol/L Potassium TNR 4.0 (3.6-5.0) mmol/L Chloride TNR 94.2 L (98-107) mmol/L Carbon Dioxide TNR 12 L (22-30) mmol/L BUN TNR 44 H (7-17) mg/dL Creatinine TNR 2.7 H (0.7-1.2) mg/dL Glucose TNR 152 H (65-100) mg/dL Calcium TNR 7.8 L (8.4-10.2) mg/dL AST 2876 H (5-40) units/L ALT 2819 H (7-56) units/L Alkaline Phosphatase 88 (35-129) units/L Total Protein 6.0 L (6.3-8.2) g/dL Albumin 3.0 L (3.9-5) g/dL Thyroid panel 06/04/19 Range/Units 04:50 TSH 1.910 (0.270-4.200) mlU/mL Calcium panel 06/03/19 06/04/19 06/04/19 Range/Units 19:32 03:20 03:20 Calcium 7.7 L 7.7 L (8.4-10.2) mg/dL Phosphorus 4.30 (2.5-4.5) mg/dL Albumin (3.9-5) g/dL 06/04/19 06/04/19 06/04/19 Range/Units 04:50 05:53 11:08 Calcium 7.7 L TNR 7.8 L (8.4-10.2) mg/dL Phosphorus (2.5-4.5) mg/dL Albumin (3.9-5) g/dL 06/04/19 Range/Units 11:08 Calcium (8.4-10.2) mg/dL Phosphorus (2.5-4.5) mg/dL Albumin 3.0 L (3.9-5) g/dL Pituitary panel 06/03/19 06/04/19 06/04/19 Range/Units 19:32 03:20 04:50 Sodium 129 L 127 L 129 L (137-145) mmol/L Potassium 4.1 4.3 4.0 (3.6-5.0) mmol/L Chloride 96.1 L 95.1 L 95.2 L (98-107) mmol/L Carbon Dioxide 15 L 13 L 16 L (22-30) mmol/L BUN 40 H 41 H 43 H (7-17) mg/dL Creatinine 2.8 H 2.7 H 3.0 H (0.7-1.2) mg/dL Glucose 165 H 139 H 152 H (65-100) mg/dL Calcium 7.7 L 7.7 L 7.7 L (8.4-10.2) mg/dL TSH (0.270-4.200) mlU/mL 06/04/19 06/04/19 06/04/19 Range/Units 04:50 05:53 11:08 Sodium TNR 126 L (137-145) mmol/L Potassium TNR 4.0 (3.6-5.0) mmol/L Chloride TNR 94.2 L (98-107) mmol/L Carbon Dioxide TNR 12 L (22-30) mmol/L BUN TNR 44 H (7-17) mg/dL Creatinine TNR 2.7 H (0.7-1.2) mg/dL Glucose TNR 152 H (65-100) mg/dL Calcium TNR 7.8 L (8.4-10.2) mg/dL TSH 1.910 (0.270-4.200) mlU/mL Adrenal panel 06/03/19 06/04/19 06/04/19 Range/Units 19:32 03:20 04:50 Sodium 129 L 127 L 129 L (137-145) mmol/L Potassium 4.1 4.3 4.0 (3.6-5.0) mmol/L Chloride 96.1 L 95.1 L 95.2 L (98-107) mmol/L Carbon Dioxide 15 L 13 L 16 L (22-30) mmol/L BUN 40 H 41 H 43 H (7-17) mg/dL Creatinine 2.8 H 2.7 H 3.0 H (0.7-1.2) mg/dL Glucose 165 H 139 H 152 H (65-100) mg/dL Calcium 7.7 L 7.7 L 7.7 L (8.4-10.2) mg/dL Total Bilirubin (0.1-1.2) mg/dL AST (5-40) units/L ALT (7-56) units/L Alkaline Phosphatase (35-129) units/L Total Protein (6.3-8.2) g/dL Albumin (3.9-5) g/dL 06/04/19 06/04/19 06/04/19 Range/Units 05:53 11:08 11:08 Sodium TNR 126 L (137-145) mmol/L Potassium TNR 4.0 (3.6-5.0) mmol/L Chloride TNR 94.2 L (98-107) mmol/L Carbon Dioxide TNR 12 L (22-30) mmol/L BUN TNR 44 H (7-17) mg/dL Creatinine TNR 2.7 H (0.7-1.2) mg/dL Glucose TNR 152 H (65-100) mg/dL Calcium TNR 7.8 L (8.4-10.2) mg/dL Total Bilirubin 0.90 (0.1-1.2) mg/dL AST 2876 H (5-40) units/L ALT 2819 H (7-56) units/L Alkaline Phosphatase 88 (35-129) units/L Total Protein 6.0 L (6.3-8.2) g/dL Albumin 3.0 L (3.9-5) g/dL
--- NOTE | 2019-06-04 16:43 | Progress Note ---
Assessment and Plan Patient is an 88 y/o woman w/ a h/o HTN, hypothyroidism, DM, and dementia, who p/w slurred speech, falls, and LUE weakness. According to the patient's clinical findings, she has had an acute ischemic stroke. Etiology of stroke is likely car sandy-embolic, given that she was found to intermittently be in A-fib. Plan: 1. Stroke: - MRI pending - CT head showed Rt. MCA acute infarct - Check MRA head/neck - Echo: EF 40-45%, bubble study negative. - Cont. ASA - Patient will require to be started on anti-coagulation given A-fib, however will wait for MRI to decide on timing, to reduce risk of hemorrhagic transformation. - Cont. statin. LDL 84. Goal LDL <70. - PT/OT/ST - DVT Ppx: recommend lovenox 2. Hypertension: - Recommend target normotension. 3. STEMI: - Continue to manage per primary and cardiology teams. - If patient is felt to require therapeutic heparin, there may be risk of hemorrhagic transformation of stroke, however this may be necessary if coronary intervention is required. Will defer to cardiology. 4. DKA: - Continue to manage per primary team - Will continue to monitor patient. Thank you for allowing me to take part in the care of this patient. Masoud Dumont MD Neurology Subjective Date of service: 06/04/19 Principal diagnosis: Stroke Interval history: Patient c/o chest pain today. Speech has improved since yesterday. Objective - Exam Narrative Exam: Patient is awake, alert, oriented 3 minus year, follows complex commands. Noted to have dysarthria. No aphasia noted. PERRL, EOMI, VFF, no facial weakness noted, bilaterally intact light touch, tongue midline. 1/5 in LUE, 5/5 in RUE/RLE, 3/5 inLLE limited due to pain. Bilaterally intact to light touch in all extremities. RUE intact to finger to nose and b/l intact to heel to solo. 2+ reflexes throughout. - Vital Sign Vital Signs - 12hr 06/04/19 06/04/19 06/04/19 05:00 07:00 08:00 Pulse Rate 71 132 H 132 H Respiratory 19 18 18 Rate Blood Pressure 93/52 121/75 121/72 Blood Pressure [Left] O2 Sat by Pulse 100 100 100 Oximetry 06/04/19 06/04/19 06/04/19 09:01 10:01 11:00 Pulse Rate 126 H 155 H 148 H Respiratory 18 14 18 Rate Blood Pressure 144/89 105/66 144/101 Blood Pressure [Left] O2 Sat by Pulse 100 100 100 Oximetry 06/04/19 06/04/19 06/04/19 12:00 14:00 15:52 Pulse Rate 84 76 76 Respiratory 22 17 17 Rate Blood Pressure 172/93 139/82 Blood Pressure 139/82 [Left] O2 Sat by Pulse 99 100 100 Oximetry - General Apperance Constitutional: uncomfortable - EENT EENT: ATNC, PERRL, mucous membranes moist - Respiratory Respiratory: lungs clear, normal breath sounds - Cardiovascular Cardiovascular: regular rate, normal S1, normal S2 Extremities: no clubbing, cyanosis, no inflammation - Gastrointestinal Gastrointestinal: normoactive bowel sounds, soft, non-tender - Musculoskeletal Musculoskeletal: no fluid collection - Psychiatric Psychiatric: mood/affect appropriate - Laboratory Findings CBC and BMP: 06/04/19 11:08 06/04/19 11:08 Abnormal Lab Findings: Abnormal Labs 06/02/19 06/02/19 06/02/19 16:45 18:16 18:16 WBC RBC MCV MCH Plt Count Lymph % (Auto) Long % (Auto) Lymph # Long # Seg Neutrophils % Seg Neutrophils # PT INR Thrombin Time Sodium 126 L Potassium 5.3 H Chloride 88.2 L Carbon Dioxide 10 L BUN 25 H Creatinine 1.5 H Glucose 446 H POC Glucose 441 H Calcium Phosphorus 5.60 H Direct Bilirubin AST ALT Total Creatine Kinase CK-MB (CK-2) Troponin T Total Protein Albumin 06/02/19 06/02/19 06/02/19 19:03 20:38 21:03 WBC RBC MCV MCH Plt Count Lymph % (Auto) Long % (Auto) Lymph # Long # Seg Neutrophils % Seg Neutrophils # PT INR Thrombin Time Sodium 130 L Potassium Chloride 93.0 L Carbon Dioxide 10 L BUN 25 H Creatinine 1.6 H Glucose 338 H POC Glucose 355 H 271 H Calcium Phosphorus Direct Bilirubin AST ALT Total Creatine Kinase CK-MB (CK-2) Troponin T Total Protein Albumin 06/02/19 06/02/19 06/02/19 22:08 22:21 23:11 WBC RBC MCV MCH Plt Count Lymph % (Auto) Long % (Auto) Lymph # Long # Seg Neutrophils % Seg Neutrophils # PT INR Thrombin Time Sodium 132 L Potassium Chloride 95.1 L Carbon Dioxide 12 L BUN 27 H Creatinine 1.7 H Glucose 261 H POC Glucose 242 H 193 H Calcium Phosphorus Direct Bilirubin AST ALT Total Creatine Kinase CK-MB (CK-2) Troponin T Total Protein Albumin 06/02/19 06/02/19 06/02/19 Unknown Unknown Unknown WBC 14.3 H RBC 3.40 L MCV 99 H MCH 33 H Plt Count Lymph % (Auto) 3.0 L Long % (Auto) 8.6 H Lymph # 0.4 L Long # 1.2 H Seg Neutrophils % 87.9 H Seg Neutrophils # 12.6 H PT 15.8 H INR 1.24 H Thrombin Time 14.0 L Sodium 126 L Potassium 5.7 H Chloride 87.0 L Carbon Dioxide 9 L* BUN 25 H Creatinine 1.5 H Glucose 436 H POC Glucose Calcium Phosphorus Direct Bilirubin AST ALT Total Creatine Kinase 1148 H CK-MB (CK-2) 25.9 H Troponin T 3.590 H* Total Protein Albumin 06/03/19 06/03/19 06/03/19 00:42 01:22 02:08 WBC RBC MCV MCH Plt Count Lymph % (Auto) Long % (Auto) Lymph # Long # Seg Neutrophils % Seg Neutrophils # PT INR Thrombin Time Sodium 130 L 127 L Potassium Chloride 95.1 L 91.8 L Carbon Dioxide 13 L 13 L BUN 29 H 29 H Creatinine 1.7 H 1.7 H Glucose 228 H 237 H POC Glucose 235 H Calcium 8.3 L Phosphorus Direct Bilirubin AST ALT Total Creatine Kinase 1688 H CK-MB (CK-2) 33.7 H Troponin T 6.110 H* D Total Protein Albumin 06/03/19 06/03/19 06/03/19 02:37 03:54 05:01 WBC RBC MCV MCH Plt Count Lymph % (Auto) Long % (Auto) Lymph # Long # Seg Neutrophils % Seg Neutrophils # PT INR Thrombin Time Sodium Potassium Chloride Carbon Dioxide BUN Creatinine Glucose POC Glucose 241 H 207 H 184 H Calcium Phosphorus Direct Bilirubin AST ALT Total Creatine Kinase CK-MB (CK-2) Troponin T Total Protein Albumin 06/03/19 06/03/19 06/03/19 06:32 07:39 08:53 WBC RBC MCV MCH Plt Count Lymph % (Auto) Long % (Auto) Lymph # Long # Seg Neutrophils % Seg Neutrophils # PT INR Thrombin Time Sodium Potassium Chloride Carbon Dioxide BUN Creatinine Glucose POC Glucose 194 H 183 H 121 H Calcium Phosphorus Direct Bilirubin AST ALT Total Creatine Kinase CK-MB (CK-2) Troponin T Total Protein Albumin 06/03/19 06/03/19 06/03/19 10:02 10:50 12:24 WBC RBC MCV MCH Plt Count Lymph % (Auto) Long % (Auto) Lymph # Long # Seg Neutrophils % Seg Neutrophils # PT INR Thrombin Time Sodium Potassium Chloride Carbon Dioxide BUN Creatinine Glucose POC Glucose 114 H 121 H 121 H Calcium Phosphorus Direct Bilirubin AST ALT Total Creatine Kinase CK-MB (CK-2) Troponin T Total Protein Albumin 06/03/19 06/03/19 06/03/19 12:57 12:57 16:13 WBC RBC MCV MCH Plt Count Lymph % (Auto) Long % (Auto) Lymph # Long # Seg Neutrophils % Seg Neutrophils # PT INR Thrombin Time Sodium 131 L Potassium Chloride 97.3 L Carbon Dioxide 13 L BUN 37 H Creatinine 2.4 H Glucose POC Glucose 140 H Calcium 8.3 L Phosphorus Direct Bilirubin 0.3 H AST 79890 H ALT 4463 H Total Creatine Kinase 1884 H CK-MB (CK-2) 26.0 H Troponin T 7.340 H* D Total Protein Albumin 3.4 L 06/03/19 06/03/19 06/03/19 17:31 18:37 19:32 WBC RBC MCV MCH Plt Count Lymph % (Auto) Long % (Auto) Lymph # Long # Seg Neutrophils % Seg Neutrophils # PT INR Thrombin Time Sodium 129 L Potassium Chloride 96.1 L Carbon Dioxide 15 L BUN 40 H Creatinine 2.8 H Glucose 165 H POC Glucose 157 H 160 H Calcium 7.7 L Phosphorus Direct Bilirubin AST ALT Total Creatine Kinase CK-MB (CK-2) Troponin T Total Protein Albumin 06/03/19 06/03/19 06/03/19 19:46 20:44 21:47 WBC RBC MCV MCH Plt Count Lymph % (Auto) Long % (Auto) Lymph # Long # Seg Neutrophils % Seg Neutrophils # PT INR Thrombin Time Sodium Potassium Chloride Carbon Dioxide BUN Creatinine Glucose POC Glucose 165 H 159 H 135 H Calcium Phosphorus Direct Bilirubin AST ALT Total Creatine Kinase CK-MB (CK-2) Troponin T Total Protein Albumin 06/03/19 06/03/19 06/04/19 22:45 23:59 01:10 WBC RBC MCV MCH Plt Count Lymph % (Auto) Long % (Auto) Lymph # Long # Seg Neutrophils % Seg Neutrophils # PT INR Thrombin Time Sodium Potassium Chloride Carbon Dioxide BUN Creatinine Glucose POC Glucose 129 H 138 H 144 H Calcium Phosphorus Direct Bilirubin AST ALT Total Creatine Kinase CK-MB (CK-2) Troponin T Total Protein Albumin 06/04/19 06/04/19 06/04/19 02:14 03:20 03:49 WBC RBC MCV MCH Plt Count Lymph % (Auto) Long % (Auto) Lymph # Long # Seg Neutrophils % Seg Neutrophils # PT INR Thrombin Time Sodium 127 L Potassium Chloride 95.1 L Carbon Dioxide 13 L BUN 41 H Creatinine 2.7 H Glucose 139 H POC Glucose 121 H 138 H Calcium 7.7 L Phosphorus Direct Bilirubin AST ALT Total Creatine Kinase CK-MB (CK-2) Troponin T Total Protein Albumin 06/04/19 06/04/19 06/04/19 04:50 04:58 06:05 WBC RBC MCV MCH Plt Count Lymph % (Auto) Long % (Auto) Lymph # Long # Seg Neutrophils % Seg Neutrophils # PT INR Thrombin Time Sodium 129 L Potassium Chloride 95.2 L Carbon Dioxide 16 L BUN 43 H Creatinine 3.0 H Glucose 152 H POC Glucose 150 H 132 H Calcium 7.7 L Phosphorus Direct Bilirubin AST ALT Total Creatine Kinase CK-MB (CK-2) Troponin T Total Protein Albumin 06/04/19 06/04/19 06/04/19 07:20 08:48 10:08 WBC RBC MCV MCH Plt Count Lymph % (Auto) Long % (Auto) Lymph # Long # Seg Neutrophils % Seg Neutrophils # PT INR Thrombin Time Sodium Potassium Chloride Carbon Dioxide BUN Creatinine Glucose POC Glucose 131 H 139 H 145 H Calcium Phosphorus Direct Bilirubin AST ALT Total Creatine Kinase CK-MB (CK-2) Troponin T Total Protein Albumin 06/04/19 06/04/19 06/04/19 11:08 11:08 11:08 WBC 11.4 H RBC 3.41 L MCV MCH 33 H Plt Count 114 L Lymph % (Auto) Long % (Auto) Lymph # Long # Seg Neutrophils % Seg Neutrophils # PT INR Thrombin Time Sodium 126 L Potassium Chloride 94.2 L Carbon Dioxide 12 L BUN 44 H Creatinine 2.7 H Glucose 152 H POC Glucose Calcium 7.8 L Phosphorus Direct Bilirubin 0.5 H AST 2876 H ALT 2819 H Total Creatine Kinase CK-MB (CK-2) Troponin T Total Protein 6.0 L Albumin 3.0 L 06/04/19 06/04/19 13:29 15:26 WBC RBC MCV MCH Plt Count Lymph % (Auto) Long % (Auto) Lymph # Long # Seg Neutrophils % Seg Neutrophils # PT INR Thrombin Time Sodium Potassium Chloride Carbon Dioxide BUN Creatinine Glucose POC Glucose 206 H 165 H Calcium Phosphorus Direct Bilirubin AST ALT Total Creatine Kinase CK-MB (CK-2) Troponin T Total Protein Albumin
[2019-06-04 20:26] LABS: Calcium 7.5 mg/dL (8.4-10.2)
[2019-06-04] MEDS: INSULIN REGULAR, HUMAN 100 UNITS in SODIUM CHLORIDE 0.9% 99 ML IV SCH (20:41)
--- NOTE | 2019-06-04 21:48 | XRay Report ---
CHEST 1 VIEW INDICATION: Cough, Shortness of breath. COMPARISON: 06/02/2019 FINDINGS: Support devices: None. Heart: Within normal limits. Lungs/Pleura: Persistent hazy bibasilar airspace disease/layering effusions, largely unchanged. Additional findings: None. IMPRESSION: 1. Largely unchanged exam. Signer Name: Haseeb Frederick MD Signed: 06/04/2019 9:43 PM Workstation Name: [id number]
[2019-06-05] MEDS ORDERED: MORPHINE 2 MG/1 ML INJ IV ONE (00:22)
[2019-06-05] MEDS ORDERED: MORPHINE 2 MG/1 ML INJ ONE (02:09)
[2019-06-05] MEDS ORDERED: IPRATROPIUM/ALBUTEROL SULFATE 3 ML AMPUL.NEB IH ONE ×2 (04:06→06:09)
[2019-06-05] MEDS ORDERED: D5W/0.45% NACL 1,000 ML IV ONE ×2 (04:13→15:19)
[2019-06-05 04:35] LABS: Hemoglobin 12.1 gm/dl (10.1-14.3); Mean Corpuscular HGB Conc 34 % (30-34); Mean Corpuscular Volume 96 fl (79-97); Platelet Count 148 K/mm3 (140-440); Red Blood Count 3.74 M/mm3 (3.65-5.03); Red Cell Distribution Width 13.7 % (13.2-15.2)
[2019-06-05 04:56] LABS: Calcium 7.8 mg/dL (8.4-10.2)
--- NOTE | 2019-06-05 08:02 | Progress Note ---
Assessment and Plan Assessment and plan: Patient is a 88-year-old woman from [facility] [place] with a history of dementia and DM type 2 who presented to [facility] ED with AMS. 1 day prior to arrival the assisted living facility told her daughter Shefali that patient need help eating and falling which is never the case. She has been admitted for obvious stroke, DKA on insulin drip DKA with severe metabolic acidosis Start DKA protocol with insulin drip Start IV fluids, monitor serial chemistry Consult critical care NSTEMI-->STEMI Check cardiac enzymes, echo, consulted and d/w Dr. Kapoor cardiology Start aspirin, hold beta-blockers in the acute phase due to acute stroke. No heparin drip for now per cardiology Now Cardiology is calling this a STEMI Acute ischemic CVA Obtain MRI of the head, neck, echo Do neuro checks, consult neurology, PT, OT Start aspirin, statin when awake Rhabdomyolysis secondary to fall Continue IV fluid, monitor CK level SIRS, noninfectious empiric Started IV Levaquin obtain blood cultures, urinalysis Abdominal distention Check CT abdomen=>chronic cholecystitis, d/w Dr. Arellano Hyperkalemia Improving, continue to monitor DVT prophylaxis AFib with RVR Cardiology is following Acute metabolic encephalopathy Urinary retention, UOP poor, intravolume depleted but accelerated hypertension due to stroke, give more volume carefully. DNR poor prognosis 06/04/2019: Daughter request [facility] transfer to patient's PCP, Dr. Connell, , I called [facility] transfer center at 1251 and spoke with Daisha. Patient goes to [facility]. Daisha says they have no ICU beds either but will reach out to them. I called and their physician never called me back. 06/05/2019: Unable to get MRI brain due to IV drips. Also, IV sedation for the MRI would be risky in this critically ill patient. Still tyring to get her off the insulin drip to downgrade her from ICU, corrected anion gap still high, she has been waiting in ER for more than 2 days waiting on ICU bed. Check pH, I believe the increase anion gap is multi factorial not just DKA but ARF also. Difficult to distinguish. CCT 31 minutes History Interval history: Patient was seen and examined. Follow-up on current diagnosis of CVA. Overnight uneventful as no events directly reported to me. Imaging, nursing note, chart, labs and old chart reviewed. Discussed with nursing. D/W Shefali at bedside, only child. They have been waiting in ED for ICU for more than 48 hours and they have contacted their [facility] physician, Dr. Connell. Hospitalist Physical - Physical exam Narrative exam: Gen: thin frial, critically ill appearing NAD, confused HEENT: NCAT, , gaze perference, PERRL, OP Clear, tongue deviates Neck: supple, no adenopathy, no thyromegaly, no JVD CVS/Heart: irregular irregular normal S1S2, pulses present bilaterally Chest/Lungs: diminished bs bilateral, Symmetrical chest expansion, good air entry bilaterally GI/Abdomen: soft, NT. distended, good bowel sounds, no guarding or rebound /Bladder: no suprapubic tenderness, no CVA or paraspinal tenderness Extermity/Skin: no c/c/e, no obvious rash MSK: FROM x 3, left hemiparesis Neuro: CN 2-12 grossly intact except speech, facial asymmetry, Psych: calm - Constitutional Vitals: Temp Pulse Resp BP Pulse Ox 98.0 F 94 H 20 141/67 98 06/03/19 15:11 06/05/19 05:01 06/05/19 05:01 06/05/19 05:01 06/05/19 05:01 General appearance: Absent: mild distress Results - Labs CBC & Chem 7: 06/05/19 04:08 06/05/19 04:08 Labs: Laboratory Last Values WBC 10.2 K/mm3 (4.5-11.0) 06/05/19 04:08 RBC 3.74 M/mm3 (3.65-5.03) 06/05/19 04:08 Hgb 12.1 gm/dl (10.1-14.3) 06/05/19 04:08 Hct 36.0 % (30.3-42.9) 06/05/19 04:08 MCV 96 fl (79-97) 06/05/19 04:08 MCH 32 pg (28-32) 06/05/19 04:08 MCHC 34 % (30-34) 06/05/19 04:08 RDW 13.7 % (13.2-15.2) 06/05/19 04:08 Plt Count 148 K/mm3 (140-440) 06/05/19 04:08 Lymph % (Auto) 3.0 % (13.4-35.0) L 06/02/19 Unknown [place] % (Auto) 8.6 % (0.0-7.3) H 06/02/19 Unknown Eos % (Auto) 0.1 % (0.0-4.3) 06/02/19 Unknown Baso % (Auto) 0.4 % (0.0-1.8) 06/02/19 Unknown Lymph # 0.4 K/mm3 (1.2-5.4) L 06/02/19 Unknown [place] # 1.2 K/mm3 (0.0-0.8) H 06/02/19 Unknown Eos # 0.0 K/mm3 (0.0-0.4) 06/02/19 Unknown Baso # 0.1 K/mm3 (0.0-0.1) 06/02/19 Unknown Seg Neutrophils % 87.9 % (40.0-70.0) H 06/02/19 Unknown Seg Neutrophils # 12.6 K/mm3 (1.8-7.7) H 06/02/19 Unknown PT 15.8 Sec. (12.2-14.9) H 06/02/19 Unknown INR 1.24 (0.87-1.13) H 06/02/19 Unknown APTT 36.3 Sec. (24.2-36.6) 06/02/19 Unknown Thrombin Time 14.0 Sec. (15.1-19.6) L 06/02/19 Unknown POC ABG pH 7.358 (7.35-7.45) 06/02/19 18:22 POC ABG pO2 93 (80-105) 06/02/19 18:22 POC ABG HCO3 9.9 (22-26 mml/L) 06/02/19 18:22 POC ABG Total CO2 10 (23-27mmol/L) 06/02/19 18:22 POC ABG O2 Sat 97 06/02/19 18:22 POC ABG Base Excess -16 ((-2) - (+3)mmol/L) 06/02/19 18:22 FiO2 21 % 06/02/19 18:22 Sodium 131 mmol/L (137-145) L 06/05/19 04:08 Potassium 3.5 mmol/L (3.6-5.0) L 06/05/19 04:08 Chloride 95.2 mmol/L (98-107) L 06/05/19 04:08 Carbon Dioxide 16 mmol/L (22-30) L 06/05/19 04:08 Anion Gap 23 mmol/L 06/05/19 04:08 BUN 46 mg/dL (7-17) H 06/05/19 04:08 Creatinine 2.5 mg/dL (0.7-1.2) H 06/05/19 04:08 Estimated GFR 18 ml/min 06/05/19 04:08 BUN/Creatinine Ratio 18 % 06/05/19 04:08 Glucose 136 mg/dL (65-100) H 06/05/19 04:08 POC Glucose 162 (70-105) H 06/05/19 07:30 Ketones Quantitative Negative (Negative) 06/02/19 18:16 Calcium 7.8 mg/dL (8.4-10.2) L 06/05/19 04:08 Phosphorus 4.30 mg/dL (2.5-4.5) 06/04/19 03:20 Magnesium 2.00 mg/dL (1.7-2.3) 06/04/19 03:20 Total Bilirubin 1.40 mg/dL (0.1-1.2) H 06/05/19 04:08 Direct Bilirubin 0.5 mg/dL (0-0.2) H 06/04/19 11:08 Indirect Bilirubin 0.4 mg/dL 06/04/19 11:08 AST 1105 units/L (5-40) H 06/05/19 04:08 ALT 2139 units/L (7-56) H 06/05/19 04:08 Alkaline Phosphatase 94 units/L (35-129) 06/05/19 04:08 Total Creatine Kinase 1884 units/L (30-135) H 06/03/19 12:57 CK-MB (CK-2) 26.0 ng/mL (0.0-4.0) H 06/03/19 12:57 CK-MB (CK-2) Rel Index 1.3 (0-4) 06/03/19 12:57 Troponin T 7.340 ng/mL (0.00-0.029) H* D 06/03/19 12:57 Total Protein 6.0 g/dL (6.3-8.2) L 06/05/19 04:08 Albumin 3.0 g/dL (3.9-5) L 06/05/19 04:08 Albumin/Globulin Ratio 1.0 % 06/05/19 04:08 Triglycerides 73 mg/dL (2-149) 06/02/19 Unknown Cholesterol 123 mg/dL (50-199) 06/02/19 Unknown LDL Cholesterol Direct 84 mg/dL (50-130) 06/02/19 Unknown HDL Cholesterol 42 mg/dL (40-59) 06/02/19 Unknown Cholesterol/HDL Ratio 2.92 % 06/02/19 Unknown TSH 1.910 mlU/mL (0.270-4.200) 06/04/19 04:50 Urine Color Ana (Yellow) 06/02/19 18:44 Urine Turbidity Cloudy (Clear) 06/02/19 18:44 Urine pH 5.0 (5.0-7.0) 06/02/19 18:44 Ur Specific [place] 1.020 (1.003-1.030) 06/02/19 18:44 Urine Protein 100 mg/dl mg/dL (Negative) 06/02/19 18:44 Urine Glucose (UA) >=500 mg/dL (Negative) 06/02/19 18:44 Urine Ketones Tr mg/dL (Negative) 06/02/19 18:44 Urine Blood Lg (Negative) 06/02/19 18:44 Urine Nitrite Neg (Negative) 06/02/19 18:44 Urine Bilirubin Neg (Negative) 06/02/19 18:44 Urine Urobilinogen < 2.0 mg/dL (<2.0) 06/02/19 18:44 Ur Leukocyte Esterase Neg (Negative) 06/02/19 18:44 Urine WBC (Auto) 2.0 /HPF (0.0-6.0) 06/02/19 18:44 Urine RBC (Auto) < 1.0 /HPF (0.0-6.0) 06/02/19 18:44 U Epithel Cells (Auto) 1.0 /HPF (0-13.0) 06/02/19 18:44 Hyaline Casts 3 /LPF 06/02/19 18:44 Urine Mucus Few /HPF 06/02/19 18:44 Urine Yeast (Budding) 1+ /HPF 06/02/19 18:44 Active Medications - Current Medications Current Medications: Generic Name Dose Route Start Last Admin Trade Name Freq PRN Reason Stop Dose Admin Acetaminophen 650 mg 06/02/19 22:22 Tylenol PO Q4H PRN Pain MILD(1-3)/Fever >100.5/LANIER Acetaminophen 650 mg 06/02/19 22:22 06/03/19 03:15 Tylenol NJ 650 mg Q4H PRN Administration Pain MILD(1-3)/Fever >100.5/LANIER Aspirin 300 mg 06/03/19 10:00 06/04/19 10:10 Aspirin NJ 300 mg QDAY ENIO Administration Bisacodyl 10 mg 06/02/19 22:24 Dulcolax NJ QDAY PRN Constipation Insulin Human Regular 100 100 mls @ 1 mls/hr 06/02/19 18:45 06/05/19 07:33 units/ Sodium Chloride IV 4 units/hr TITR ENIO 4 mls/hr Titration Protocol 1 UNITS/HR Dextrose/Sodium Chloride 1,000 mls @ 125 mls/hr 06/02/19 23:00 06/03/19 17:24 D5/0.45ns IV 125 mls/hr DIRECT ENIO Administration Sodium Chloride 1,000 mls @ 125 mls/hr 06/02/19 22:30 Nacl 0.9% 1000 Ml IV DIRECT ENIO Magnesium Hydroxide 30 ml 06/02/19 22:24 Milk Of Magnesia PO Q4H PRN Constipation Ondansetron HCl 4 mg 06/02/19 22:22 Zofran IV Q8H PRN Nausea And Vomiting Sodium Chloride 10 ml 06/03/19 10:00 06/04/19 23:13 Sodium Chloride Flush Syringe 10 Ml IV 10 ml BID ENIO Administration Sodium Chloride 10 ml 06/02/19 22:22 Sodium Chloride Flush Syringe 10 Ml IV PRN PRN LINE FLUSH
--- NOTE | 2019-06-05 11:29 | Progress Note ---
Assessment and Plan Currently stable cardiac status. The patient is a high risk candidate for coronary intervention considering several comorbid issues including her old age, recent acute stroke, DKA, and dementia. Renal failure also puts her at significant risk for contrast nephropathy. We will continue conservative management at this point. The patient has been seen in conjunction with Dr. Brown who agrees with the assessment and plan of care. - Patient Problems (1) STEMI (ST elevation myocardial infarction) Current Visit: Yes Status: Acute Plan to address problem: Not a candidate for intervention. Conservative medical management. (2) Acute CVA (cerebrovascular accident) Current Visit: Yes Status: Acute (3) Paroxysmal atrial fibrillation with rapid ventricular response Current Visit: Yes Status: Acute (4) Diabetic ketoacidosis Current Visit: Yes Status: Acute (5) Dementia Current Visit: Yes Status: Chronic (6) Diabetes Current Visit: Yes Status: Chronic (7) Elevated LFTs Current Visit: Yes Status: Acute Subjective Date of service: 06/05/19 Principal diagnosis: Stroke Interval history: pt resting in bed, appears more alert today. in AFib with CVR on tele. niece at bedside. Objective Last Vital Signs Temp 98.0 F 06/03/19 15:11 Pulse 94 H 06/05/19 05:01 Resp 20 06/05/19 05:01 BP 141/67 06/05/19 05:01 Pulse Ox 98 06/05/19 05:01 - Physical Examination General: No Apparent Distress HEENT: Positive: PERRL Neck: Positive: neck supple Cardiac: Positive: irregularly irregular, S1/S2 Lungs: Positive: Decreased Breath Sounds, Rhonchi Neuro: Positive: Other (confused) Abdomen: Positive: Unremarkable Skin: Positive: Clear Musculoskeletal: other (CB) Extremities: Present: normal - Labs and Meds Cardiac Enzymes 06/04/19 06/05/19 Range/Units 11:08 04:08 AST 2876 H 1105 H (5-40) units/L CBC 06/05/19 Range/Units 04:08 WBC 10.2 (4.5-11.0) K/mm3 RBC 3.74 (3.65-5.03) M/mm3 Hgb 12.1 (10.1-14.3) gm/dl Hct 36.0 (30.3-42.9) % Plt Count 148 (140-440) K/mm3 Comprehensive Metabolic Panel 06/04/19 06/04/19 06/04/19 Range/Units 11:08 11:08 19:56 Sodium 126 L 125 L (137-145) mmol/L Potassium 4.0 3.8 (3.6-5.0) mmol/L Chloride 94.2 L 94.5 L (98-107) mmol/L Carbon Dioxide 12 L 11 L (22-30) mmol/L BUN 44 H 45 H (7-17) mg/dL Creatinine 2.7 H 2.6 H (0.7-1.2) mg/dL Glucose 152 H 169 H (65-100) mg/dL Calcium 7.8 L 7.5 L (8.4-10.2) mg/dL Direct Bilirubin 0.5 H (0-0.2) mg/dL Indirect Bilirubin 0.4 mg/dL AST 2876 H (5-40) units/L ALT 2819 H (7-56) units/L Alkaline Phosphatase 88 (35-129) units/L Total Protein 6.0 L (6.3-8.2) g/dL Albumin 3.0 L (3.9-5) g/dL 06/05/19 Range/Units 04:08 Sodium 131 L (137-145) mmol/L Potassium 3.5 L (3.6-5.0) mmol/L Chloride 95.2 L (98-107) mmol/L Carbon Dioxide 16 L (22-30) mmol/L BUN 46 H (7-17) mg/dL Creatinine 2.5 H (0.7-1.2) mg/dL Glucose 136 H (65-100) mg/dL Calcium 7.8 L (8.4-10.2) mg/dL Direct Bilirubin (0-0.2) mg/dL Indirect Bilirubin mg/dL AST 1105 H (5-40) units/L ALT 2139 H (7-56) units/L Alkaline Phosphatase 94 (35-129) units/L Total Protein 6.0 L (6.3-8.2) g/dL Albumin 3.0 L (3.9-5) g/dL - Imaging and Cardiology Echo: report reviewed - Telemetry EKG Rhythm: Atrial Fibrillation
[2019-06-05] MEDS: ASPIRIN 300 MG RECT SUPP PR SCH (11:37)
--- NOTE | 2019-06-05 12:39 | Discharge Summary ---
Providers - Providers Date of Admission: 06/02/19 18:42 Date of discharge: 06/05/19 Attending physician: BARBIE MORENO 06/02/19 Consult to Physician [CONS] Routine Comment: Consulting Provider: ASHLI HOUSE Physician Instructions: Reason For Exam: cva 06/02/19 17:22 Speech Therapy Evaluation and Treat [CONS] Routine Reason For Exam: failed bedside swallow eval 06/02/19 18:31 Consult to Physician [CONS] Stat Comment: Consulting Provider: LAURIE WEINSTEIN Physician Instructions: Reason For Exam: elevated troponin 06/02/19 22:22 Consult to Physician [CONS] Routine Comment: Consulting Provider: HEATHER RIOS Physician Instructions: Reason For Exam: cc 06/02/19 22:24 Occupational Therapy Evaluate and Treat [CONS] Routine Comment: Reason For Exam: Neuro deficits Physical Therapy Evaluation and Treat [CONS] Routine Comment: Reason For Exam: Neuro deficits 06/03/19 03:51 Consult to Physician [CONS] Routine Comment: Consulting Provider: PRASHANT GARCIA Physician Instructions: Reason For Exam: aydee Primary care physician: RN CHEMICAL DEPENDENCY Hospitalization Condition: Serious Hospital course: Patient is a 88-year-old woman from [facility] with a history of dementia and DM type 2 who presented to [facility] ED with AMS. 1 day prior to arrival the [facility] facility told her daughter Shefali that patient need help eating and falling which is never the case. She has been admitted for obvious stroke, DKA on insulin drip, afib with RVR on Amiodarone, STEMI, Hepatic congestion, Acute ischemic stroke with left hemiparesis and expressive aphasia. DKA with severe metabolic acidosis Start DKA protocol with insulin drip Start IV fluids, monitor serial chemistry Consult critical care NSTEMI-->STEMI with combined heart failure Check cardiac enzymes, echo, consulted and d/w Dr. Weinstein cardiology Start aspirin, hold beta-blockers in the acute phase due to acute stroke. No heparin drip per cardiology Now Cardiology is calling this a STEMI Acute ischemic CVA Obtain MRI of the head, neck, echo Do neuro checks, consult neurology, PT, OT Start aspirin, statin when awake Rhabdomyolysis secondary to fall Continue IV fluid, monitor CK level SIRS, noninfectious empiric Started IV Levaquin obtain blood cultures, urinalysis Abdominal distention Check CT abdomen=>chronic cholecystitis, d/w Dr. Garcia Hyperkalemia Improving, continue to monitor DVT prophylaxis AFib with RVR Cardiology is following Acute metabolic encephalopathy Urinary retention, UOP poor, intravolume depleted but accelerated hypertension due to stroke, give more volume carefully. DNR poor prognosis 06/04/2019: Daughter request [place] transfer to patient's PCP, Dr. Connell, , I called [place] transfer center at 1251 and spoke with Daisha. Patient goes to [facility] [place] [facility]. Daisha says they have no ICU beds either but will reach out to them. I called and their physician never called me back. I [facility] 06/05/2019: Unable to get MRI brain due to IV drips incompatibility. Also, IV sedation for the MRI would be risky in this critically ill patient. Still tyring to get her off the insulin drip to downgrade her from ICU, corrected anion gap still high, she has been waiting in ER for more than 2 days waiting on ICU bed. Check pH, I believe the increase anion gap is multi factorial not just DKA but ARF also. Difficult to distinguish. [facility] Daisha called me with [facility]. Fabián Cade who has accepted. I notified the nurse and wrote order to make CD rom copies of ECHO and all imaging to send with patient. Disposition: DC-[id number] OP ADMIT IP TO THIS HOSP Time spent for discharge: 36 minutes Core Measure Documentation - Palliative Care Palliative Care/ Comfort Measures: Not Applicable - Core Measures Any of the following diagnoses?: acute OK, heart failure, stroke - VTE Discharge Requirements Deep Vein Thrombosis/Pulmonary Embolism Present on Admission: No Has pt received <5 days of overlap therapy or INR<2.0: No Anticoagulant overlap therapy prescribed at discharge: No Contraindication No Overlap Therapy order at DC: Not Indicated - Acute OK Discharge Requirements Aspirin at discharge: No Reason for no aspirin on DC: Medical contraindication (unable to swallow due to stroke) NASREEN/ARB for LVSD if EF <40%: No Reason for no NASREEN/ARB: Medical contraindication (unable to swallow due to stroke) Beta laurie at discharge: No Reason for no beta laurie on DC: Medical contraindication (unable to swallow due to stroke) Statin for LDL = or >100 mg/dl on DC: No Reason for no statin on DC: Medical contraindication (unable to swallow due to stroke) - Heart Failure Discharge Requirements NASREEN/ARB for LVSD if EF <40%: No Reason for no NASREEN/ARB: Medical contraindication (unable to swallow due to stroke) Beta laurie at discharge: No Reason for no beta laurie on DC: Medical contraindication (unable to swallow due to stroke) - Stroke Discharge Requirements Statin for LDL = or >70 mg/dl on DC: No Reason for no statin on DC: Medical Contraindication (unable to swallow due to stroke) Anticoag for atrial fib/atrial flutter: Yes Reason for no anticoag for AF/F on DC: Medical Contraindication (unable to swallow due to stroke) Antithrombotic for ischemic stroke: No Reason for no antithrombotic on DC: Medical Contraindication (unable to swallow due to stroke) Exam - Physical Exam Narrative exam: Gen: thin frial, critically ill appearing NAD, confused HEENT: NCAT, , gaze perference, PERRL, OP Clear, tongue deviates Neck: supple, no adenopathy, no thyromegaly, no JVD CVS/Heart: irregular irregular normal S1S2, pulses present bilaterally Chest/Lungs: diminished bs bilateral, Symmetrical chest expansion, good air entry bilaterally GI/Abdomen: soft, NT. distended, good bowel sounds, no guarding or rebound /Bladder: no suprapubic tenderness, no CVA or paraspinal tenderness Extermity/Skin: no c/c/e, no obvious rash MSK: FROM x 3, left hemiparesis Neuro: CN 2-12 grossly intact except speech, facial asymmetry, Psych: calm - Constitutional Vitals: Temp Pulse Resp BP Pulse Ox 98.0 F 94 H 20 141/67 98 06/03/19 15:11 06/05/19 05:01 06/05/19 05:01 06/05/19 05:01 06/05/19 05:01 Plan Activity: other (no strenous activity) Diet: other (npo failed swallow evaluation) Follow up with: PRIMARY CARE, [Primary Care Provider] - 7 Days
[2019-06-05 13:29] LABS: Calcium 7.8 mg/dL (8.4-10.2)
[2019-06-05 15:21] VITALS: BP 141/99
--- NOTE | 2019-06-05 16:35 | Progress Note ---
Assessment and Plan Patient is an 88 y/o woman w/ a h/o HTN, hypothyroidism, DM, and dementia, who p/w slurred speech, falls, and LUE weakness. According to the patient's clinical findings, she has had an acute ischemic stroke. Etiology of stroke is likely car sandy-embolic, given that she was found to intermittently be in A-fib. Plan: 1. Stroke: - MRI pending - CT head showed Rt. MCA acute infarct - Check MRA head/neck- pending - Echo: EF 40-45%, bubble study negative. - Cont. ASA - Patient will require to be started on anti-coagulation given A-fib, however will wait for MRI to decide on timing, to reduce risk of hemorrhagic transformation. - Cont. statin. LDL 84. Goal LDL <70. - PT/OT/ST - DVT Ppx: recommend lovenox 2. Hypertension: - Recommend target normotension. 3. STEMI: - Continue to manage per primary and cardiology teams. - If patient is felt to require therapeutic heparin, there may be risk of hemorrhagic transformation of stroke, however this may be necessary if coronary intervention is required. Will defer to cardiology. 4. DKA: - Continue to manage per primary team - Will sign off as I am not covering neurology service over the weekend. Recommend to consult neurologist covering service over the weekend for further neurologic monitoring and management. Thank you for allowing me to take part in the care of this patient. Masoud Dumont MD Neurology Subjective Date of service: 06/05/19 Principal diagnosis: Stroke Interval history: No acute events overnight. LUE weakness slightly improved today. Objective - Exam Narrative Exam: Patient is awake, alert, oriented 3 minus year, follows complex commands. Noted to have dysarthria. No aphasia noted. PERRL, EOMI, VFF, no facial weakness noted, bilaterally intact light touch, tongue midline. 2/5 in LUE, 5/5 in RUE/RLE, 3/5 inLLE limited due to pain. Bilaterally intact to light touch in all extremities. RUE intact to finger to nose and b/l intact to heel to solo. 2+ reflexes throughout. - Vital Sign Vital Signs - 12hr 06/05/19 06/05/19 06/05/19 05:01 06:01 07:00 Pulse Rate 94 H 78 Respiratory 20 17 Rate Blood Pressure 141/67 138/66 124/60 O2 Sat by Pulse 98 99 100 Oximetry 06/05/19 06/05/19 06/05/19 08:01 09:01 10:01 Pulse Rate 96 H 85 Respiratory 16 16 22 Rate Blood Pressure 141/72 85/66 132/80 O2 Sat by Pulse 99 98 100 Oximetry 06/05/19 06/05/19 06/05/19 11:01 12:01 13:01 Pulse Rate 99 H 92 H 90 Respiratory 19 18 20 Rate Blood Pressure 149/95 149/95 149/95 O2 Sat by Pulse 97 97 100 Oximetry 06/05/19 14:01 Pulse Rate 103 H Respiratory 22 Rate Blood Pressure 141/99 O2 Sat by Pulse 98 Oximetry - General Apperance Constitutional: uncomfortable - EENT EENT: ATNC, PERRL, mucous membranes moist, hearing intact, vision intact - Respiratory Respiratory: lungs clear, normal breath sounds - Cardiovascular Cardiovascular: regular rate, normal S1, normal S2 Extremities: no clubbing, cyanosis, no inflammation - Gastrointestinal Gastrointestinal: normoactive bowel sounds, soft, non-tender - Musculoskeletal Musculoskeletal: pain in joint - Laboratory Findings CBC and BMP: 06/05/19 04:08 06/05/19 12:53 Abnormal Lab Findings: Abnormal Labs 06/02/19 06/02/19 06/02/19 16:45 18:16 18:16 WBC RBC MCV MCH Plt Count Lymph % (Auto) [place] % (Auto) Lymph # [place] # Seg Neutrophils % Seg Neutrophils # PT INR Thrombin Time VBG pH Sodium 126 L Potassium 5.3 H Chloride 88.2 L Carbon Dioxide 10 L BUN 25 H Creatinine 1.5 H Glucose 446 H POC Glucose 441 H Calcium Phosphorus 5.60 H Total Bilirubin Direct Bilirubin AST ALT Total Creatine Kinase CK-MB (CK-2) Troponin T Total Protein Albumin 06/02/19 06/02/19 06/02/19 19:03 20:38 21:03 WBC RBC MCV MCH Plt Count Lymph % (Auto) [place] % (Auto) Lymph # [place] # Seg Neutrophils % Seg Neutrophils # PT INR Thrombin Time VBG pH Sodium 130 L Potassium Chloride 93.0 L Carbon Dioxide 10 L BUN 25 H Creatinine 1.6 H Glucose 338 H POC Glucose 355 H 271 H Calcium Phosphorus Total Bilirubin Direct Bilirubin AST ALT Total Creatine Kinase CK-MB (CK-2) Troponin T Total Protein Albumin 06/02/19 06/02/19 06/02/19 22:08 22:21 23:11 WBC RBC MCV MCH Plt Count Lymph % (Auto) [place] % (Auto) Lymph # [place] # Seg Neutrophils % Seg Neutrophils # PT INR Thrombin Time VBG pH Sodium 132 L Potassium Chloride 95.1 L Carbon Dioxide 12 L BUN 27 H Creatinine 1.7 H Glucose 261 H POC Glucose 242 H 193 H Calcium Phosphorus Total Bilirubin Direct Bilirubin AST ALT Total Creatine Kinase CK-MB (CK-2) Troponin T Total Protein Albumin 06/02/19 06/02/19 06/02/19 Unknown Unknown Unknown WBC 14.3 H RBC 3.40 L MCV 99 H MCH 33 H Plt Count Lymph % (Auto) 3.0 L [place] % (Auto) 8.6 H Lymph # 0.4 L [place] # 1.2 H Seg Neutrophils % 87.9 H Seg Neutrophils # 12.6 H PT 15.8 H INR 1.24 H Thrombin Time 14.0 L VBG pH Sodium 126 L Potassium 5.7 H Chloride 87.0 L Carbon Dioxide 9 L* BUN 25 H Creatinine 1.5 H Glucose 436 H POC Glucose Calcium Phosphorus Total Bilirubin Direct Bilirubin AST ALT Total Creatine Kinase 1148 H CK-MB (CK-2) 25.9 H Troponin T 3.590 H* Total Protein Albumin 06/03/19 06/03/19 06/03/19 00:42 01:22 02:08 WBC RBC MCV MCH Plt Count Lymph % (Auto) [place] % (Auto) Lymph # [place] # Seg Neutrophils % Seg Neutrophils # PT INR Thrombin Time VBG pH Sodium 130 L 127 L Potassium Chloride 95.1 L 91.8 L Carbon Dioxide 13 L 13 L BUN 29 H 29 H Creatinine 1.7 H 1.7 H Glucose 228 H 237 H POC Glucose 235 H Calcium 8.3 L Phosphorus Total Bilirubin Direct Bilirubin AST ALT Total Creatine Kinase 1688 H CK-MB (CK-2) 33.7 H Troponin T 6.110 H* D Total Protein Albumin 06/03/19 06/03/19 06/03/19 02:37 03:54 05:01 WBC RBC MCV MCH Plt Count Lymph % (Auto) [place] % (Auto) Lymph # [place] # Seg Neutrophils % Seg Neutrophils # PT INR Thrombin Time VBG pH Sodium Potassium Chloride Carbon Dioxide BUN Creatinine Glucose POC Glucose 241 H 207 H 184 H Calcium Phosphorus Total Bilirubin Direct Bilirubin AST ALT Total Creatine Kinase CK-MB (CK-2) Troponin T Total Protein Albumin 06/03/19 06/03/19 06/03/19 06:32 07:39 08:53 WBC RBC MCV MCH Plt Count Lymph % (Auto) [place] % (Auto) Lymph # [place] # Seg Neutrophils % Seg Neutrophils # PT INR Thrombin Time VBG pH Sodium Potassium Chloride Carbon Dioxide BUN Creatinine Glucose POC Glucose 194 H 183 H 121 H Calcium Phosphorus Total Bilirubin Direct Bilirubin AST ALT Total Creatine Kinase CK-MB (CK-2) Troponin T Total Protein Albumin 06/03/19 06/03/19 06/03/19 10:02 10:50 12:24 WBC RBC MCV MCH Plt Count Lymph % (Auto) [place] % (Auto) Lymph # [place] # Seg Neutrophils % Seg Neutrophils # PT INR Thrombin Time VBG pH Sodium Potassium Chloride Carbon Dioxide BUN Creatinine Glucose POC Glucose 114 H 121 H 121 H Calcium Phosphorus Total Bilirubin Direct Bilirubin AST ALT Total Creatine Kinase CK-MB (CK-2) Troponin T Total Protein Albumin 06/03/19 06/03/19 06/03/19 12:57 12:57 16:13 WBC RBC MCV MCH Plt Count Lymph % (Auto) [place] % (Auto) Lymph # [place] # Seg Neutrophils % Seg Neutrophils # PT INR Thrombin Time VBG pH Sodium 131 L Potassium Chloride 97.3 L Carbon Dioxide 13 L BUN 37 H Creatinine 2.4 H Glucose POC Glucose 140 H Calcium 8.3 L Phosphorus Total Bilirubin Direct Bilirubin 0.3 H AST 66067 H ALT 4463 H Total Creatine Kinase 1884 H CK-MB (CK-2) 26.0 H Troponin T 7.340 H* D Total Protein Albumin 3.4 L 06/03/19 06/03/19 06/03/19 17:31 18:37 19:32 WBC RBC MCV MCH Plt Count Lymph % (Auto) [place] % (Auto) Lymph # [place] # Seg Neutrophils % Seg Neutrophils # PT INR Thrombin Time VBG pH Sodium 129 L Potassium Chloride 96.1 L Carbon Dioxide 15 L BUN 40 H Creatinine 2.8 H Glucose 165 H POC Glucose 157 H 160 H Calcium 7.7 L Phosphorus Total Bilirubin Direct Bilirubin AST ALT Total Creatine Kinase CK-MB (CK-2) Troponin T Total Protein Albumin 06/03/19 06/03/19 06/03/19 19:46 20:44 21:47 WBC RBC MCV MCH Plt Count Lymph % (Auto) [place] % (Auto) Lymph # [place] # Seg Neutrophils % Seg Neutrophils # PT INR Thrombin Time VBG pH Sodium Potassium Chloride Carbon Dioxide BUN Creatinine Glucose POC Glucose 165 H 159 H 135 H Calcium Phosphorus Total Bilirubin Direct Bilirubin AST ALT Total Creatine Kinase CK-MB (CK-2) Troponin T Total Protein Albumin 06/03/19 06/03/19 06/04/19 22:45 23:59 01:10 WBC RBC MCV MCH Plt Count Lymph % (Auto) [place] % (Auto) Lymph # [place] # Seg Neutrophils % Seg Neutrophils # PT INR Thrombin Time VBG pH Sodium Potassium Chloride Carbon Dioxide BUN Creatinine Glucose POC Glucose 129 H 138 H 144 H Calcium Phosphorus Total Bilirubin Direct Bilirubin AST ALT Total Creatine Kinase CK-MB (CK-2) Troponin T Total Protein Albumin 06/04/19 06/04/19 06/04/19 02:14 03:20 03:49 WBC RBC MCV MCH Plt Count Lymph % (Auto) [place] % (Auto) Lymph # [place] # Seg Neutrophils % Seg Neutrophils # PT INR Thrombin Time VBG pH Sodium 127 L Potassium Chloride 95.1 L Carbon Dioxide 13 L BUN 41 H Creatinine 2.7 H Glucose 139 H POC Glucose 121 H 138 H Calcium 7.7 L Phosphorus Total Bilirubin Direct Bilirubin AST ALT Total Creatine Kinase CK-MB (CK-2) Troponin T Total Protein Albumin 06/04/19 06/04/19 06/04/19 04:50 04:58 06:05 WBC RBC MCV MCH Plt Count Lymph % (Auto) [place] % (Auto) Lymph # [place] # Seg Neutrophils % Seg Neutrophils # PT INR Thrombin Time VBG pH Sodium 129 L Potassium Chloride 95.2 L Carbon Dioxide 16 L BUN 43 H Creatinine 3.0 H Glucose 152 H POC Glucose 150 H 132 H Calcium 7.7 L Phosphorus Total Bilirubin Direct Bilirubin AST ALT Total Creatine Kinase CK-MB (CK-2) Troponin T Total Protein Albumin 06/04/19 06/04/19 06/04/19 07:20 08:48 10:08 WBC RBC MCV MCH Plt Count Lymph % (Auto) [place] % (Auto) Lymph # [place] # Seg Neutrophils % Seg Neutrophils # PT INR Thrombin Time VBG pH Sodium Potassium Chloride Carbon Dioxide BUN Creatinine Glucose POC Glucose 131 H 139 H 145 H Calcium Phosphorus Total Bilirubin Direct Bilirubin AST ALT Total Creatine Kinase CK-MB (CK-2) Troponin T Total Protein Albumin 06/04/19 06/04/19 06/04/19 11:08 11:08 11:08 WBC 11.4 H RBC 3.41 L MCV MCH 33 H Plt Count 114 L Lymph % (Auto) [place] % (Auto) Lymph # [place] # Seg Neutrophils % Seg Neutrophils # PT INR Thrombin Time VBG pH Sodium 126 L Potassium Chloride 94.2 L Carbon Dioxide 12 L BUN 44 H Creatinine 2.7 H Glucose 152 H POC Glucose Calcium 7.8 L Phosphorus Total Bilirubin Direct Bilirubin 0.5 H AST 2876 H ALT 2819 H Total Creatine Kinase CK-MB (CK-2) Troponin T Total Protein 6.0 L Albumin 3.0 L 06/04/19 06/04/19 06/04/19 13:29 15:26 17:50 WBC RBC MCV MCH Plt Count Lymph % (Auto) [place] % (Auto) Lymph # [place] # Seg Neutrophils % Seg Neutrophils # PT INR Thrombin Time VBG pH Sodium Potassium Chloride Carbon Dioxide BUN Creatinine Glucose POC Glucose 206 H 165 H 164 H Calcium Phosphorus Total Bilirubin Direct Bilirubin AST ALT Total Creatine Kinase CK-MB (CK-2) Troponin T Total Protein Albumin 06/04/19 06/04/19 06/04/19 18:44 19:48 19:56 WBC RBC MCV MCH Plt Count Lymph % (Auto) [place] % (Auto) Lymph # [place] # Seg Neutrophils % Seg Neutrophils # PT INR Thrombin Time VBG pH Sodium 125 L Potassium Chloride 94.5 L Carbon Dioxide 11 L BUN 45 H Creatinine 2.6 H Glucose 169 H POC Glucose 167 H 168 H Calcium 7.5 L Phosphorus Total Bilirubin Direct Bilirubin AST ALT Total Creatine Kinase CK-MB (CK-2) Troponin T Total Protein Albumin 06/04/19 06/04/19 06/04/19 20:49 22:07 23:05 WBC RBC MCV MCH Plt Count Lymph % (Auto) [place] % (Auto) Lymph # [place] # Seg Neutrophils % Seg Neutrophils # PT INR Thrombin Time VBG pH Sodium Potassium Chloride Carbon Dioxide BUN Creatinine Glucose POC Glucose 160 H 173 H 113 H Calcium Phosphorus Total Bilirubin Direct Bilirubin AST ALT Total Creatine Kinase CK-MB (CK-2) Troponin T Total Protein Albumin 06/05/19 06/05/19 06/05/19 01:22 02:21 03:30 WBC RBC MCV MCH Plt Count Lymph % (Auto) [place] % (Auto) Lymph # [place] # Seg Neutrophils % Seg Neutrophils # PT INR Thrombin Time VBG pH Sodium Potassium Chloride Carbon Dioxide BUN Creatinine Glucose POC Glucose 119 H 129 H 127 H Calcium Phosphorus Total Bilirubin Direct Bilirubin AST ALT Total Creatine Kinase CK-MB (CK-2) Troponin T Total Protein Albumin 06/05/19 06/05/19 06/05/19 04:08 04:32 06:14 WBC RBC MCV MCH Plt Count Lymph % (Auto) [place] % (Auto) Lymph # [place] # Seg Neutrophils % Seg Neutrophils # PT INR Thrombin Time VBG pH Sodium 131 L Potassium 3.5 L Chloride 95.2 L Carbon Dioxide 16 L BUN 46 H Creatinine 2.5 H Glucose 136 H POC Glucose 139 H 143 H Calcium 7.8 L Phosphorus Total Bilirubin 1.40 H Direct Bilirubin AST 1105 H ALT 2139 H Total Creatine Kinase CK-MB (CK-2) Troponin T Total Protein 6.0 L Albumin 3.0 L 06/05/19 06/05/19 06/05/19 07:30 08:54 10:14 WBC RBC MCV MCH Plt Count Lymph % (Auto) [place] % (Auto) Lymph # [place] # Seg Neutrophils % Seg Neutrophils # PT INR Thrombin Time VBG pH Sodium Potassium Chloride Carbon Dioxide BUN Creatinine Glucose POC Glucose 162 H 174 H 157 H Calcium Phosphorus Total Bilirubin Direct Bilirubin AST ALT Total Creatine Kinase CK-MB (CK-2) Troponin T Total Protein Albumin 06/05/19 06/05/19 06/05/19 11:19 12:06 12:38 WBC RBC MCV MCH Plt Count Lymph % (Auto) [place] % (Auto) Lymph # [place] # Seg Neutrophils % Seg Neutrophils # PT INR Thrombin Time VBG pH 7.245 L Sodium Potassium Chloride Carbon Dioxide BUN Creatinine Glucose POC Glucose 161 H 164 H Calcium Phosphorus Total Bilirubin Direct Bilirubin AST ALT Total Creatine Kinase CK-MB (CK-2) Troponin T Total Protein Albumin 06/05/19 06/05/19 06/05/19 12:53 13:42 14:50 WBC RBC MCV MCH Plt Count Lymph % (Auto) [place] % (Auto) Lymph # [place] # Seg Neutrophils % Seg Neutrophils # PT INR Thrombin Time VBG pH Sodium 131 L Potassium Chloride Carbon Dioxide 15 L BUN 42 H Creatinine 2.2 H Glucose 118 H POC Glucose 136 H 106 H Calcium 7.8 L Phosphorus Total Bilirubin Direct Bilirubin AST ALT Total Creatine Kinase CK-MB (CK-2) Troponin T Total Protein Albumin
== END 2019-06-05 15:22 | disposition admitted as inpatient to this hospital (09) ==
LOC: ED 16:18 → CC1 18:42 → UNDOADMIN 18:42
DX: I63.9 Cerebral infarction, unspecified (principal); E11.10 Type 2 diabetes mellitus with ketoacidosis without coma; G93.41 Metabolic encephalopathy; I21.3 ST elevation (STEMI) myocardial infarction of unspecified site; M19.90 Unspecified osteoarthritis, unspecified site; I10 Essential (primary) hypertension; Z87.891 Personal history of nicotine dependence; Z79.84 Long term (current) use of oral hypoglycemic drugs; Z88.0 Allergy status to penicillin
CPT/HCPCS: 36415; 70450; 71045; 73030; 73090; 74176; 76705; 80048; 80053; 80061; 80076; 81001; 82010; 82550; 82553; 82803; 82805; 82962; 83735; 84100; 84443; 84484; 85025; 85027; 85610; 85670; 85730; 92610; 93005; 93010; 93306; 94644; 99291; J0282; J0610; J1630; J2060; J2270; J7030; J7060; 90686; 90732; G0378; J1815